=== PATIENT | male | born 1970 | race Caucasian/White ===

== ENCOUNTER 2022-06-22 08:47 | Observation (INO) ==
--- NOTE | 2022-06-22 09:09 | Emergency Department Note ---
Impression & Plan Precordial chest pain, Abnormal stress test ED Provider Note NAME: SOTNEY GARRISON AGE: 51 SEX: M : 1970 ARRIVES VIA: Walk-In INFORMANT: [Patient] ED PROVIDER(S): [Morteza Devine MD] CHIEF COMPLAINT: Chest pain HISTORY OF PRESENT ILLNESS: The patient is a 51-year-old male with no known coronary disease. He does have history of high blood pressure and high cholesterol as well as prediabetes. The patient states that for the last week, he has had episodes of chest discomfort that is almost like a burn. When it happens, he feels a burning and discomfort down both arms. The pain has been a 7/10 at its worst. Sometimes it is 30 seconds long, sometimes it last for minutes. The patient felt better today when he sat down. 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 He does feel a bit short of breath with the discomfort, no sweating or nausea. The patient currently has no discomfort. He did speak with his doctors office today about his recent difficulty, he was referred to the ER. REVIEW OF SYSTEMS: See HPI for pertinent positives and negatives. A total of ten systems were reviewed and were otherwise negative. PMHx/PSHx: See Below SOCIAL HISTORY: See Below. PHYSICAL EXAM: GENERAL: Patient is in no acute distress. HEENT: No acute trauma, normocephalic atraumatic, mucous membranes moist, no nasal congestion, no scleral icterus. NECK: No stridor, no adenopathy, no meningismus, trachea is midline. LUNGS: Clear to auscultation bilaterally, no wheeze, no rhonchi, breath sounds equal. HEART: Without murmurs gallops or rubs, regular rate and rhythm. Chest: Nontender chest wall. ABDOMEN: Soft, nontender, bowel sounds positive, no peritonitis. EXTREMITIES: No cyanosis or edema, full range of motion of all the joints without pain or difficulty, no signs for acute trauma. NEUROLOGIC: Oriented x 3, no acute motor or sensory deficits, no focal weakness. SKIN: No rash, no jaundice, no diaphoresis. DIFFERENTIAL DIAGNOSIS: Cardiac ischemia, aortic dissection, pulmonary embolism, pneumothorax, pneumonia, pericarditis, myocarditis, esophageal rupture, GERD, cholecystitis, pancreatitis, musculoskeletal, as well as other pathologies. EMERGENCY DEPARTMENT COURSE/PROCEDURES: ECG: Indication was chest pain. The ECG shows a normal sinus rhythm with a rate of 71. There is no ST elevation, no PVCs. The QTc is 425. Continuous Cardiac Monitoring: An order was placed for continuous cardiac monitoring. The monitor shows a rate of 74 with normal sinus rhythm. MEDICAL DECISION MAKING: There is no leukocytosis or concerning anemia. There is a normal platelet count. No coagulopathy. ECG shows a normal sinus rhythm, no ischemia or dysrhythmia. Cardiac enzyme testing x2 is not consistent with acute cardiac injury. There is no renal failure or significant electrolyte abnormality. No concerning liver enzyme elevation. No pancreatitis. Patient appeared to be in a euthyroid state. COVID test returned negative. Chest x-ray did not show pneumonia or CHF. Patient presents with some chest pain which did radiate to his arms. He does have cardiac risk factors. I did speak with cardiology. The patient went for a stress test and failed. He is now under the care of of cardiology, he is likely to undergo a cardiac catheterization. The patient is aware of his findings, case management has been involved. His cardiac work-up is underway. 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 Beliefs That Will Affect Care: None Current Living Situation: Spouse and Family Feels Safe at Home: Yes Assistive Devices: Glasses Allergies Allergies Allergy/AdvReac Type Severity Reaction Status Date / Time No Known Allergies Allergy Verified 09/08/18 07:10 Home Meds Home Medications Medication Instructions Recorded Confirmed Atorvastatin 1 tab PO HS 08/18/18 09/08/18 Lisinopril 1 tab PO HS 08/18/18 09/08/18 nortriptyline 10 mg capsule 10 mg PO HS 08/18/18 09/08/18 Previous Rx's Medication Instructions Recorded acetaminophen 500 mg tablet 500 - 1,000 mg PO Q8H PRN pain #30 09/08/18 (Tylenol Extra Strength) tabs ibuprofen 200 mg tablet (Advil) 600 mg PO QID PRN fever or pain 09/08/18 #30 tabs Results & Data (ED) Vital Signs Vital Signs - 24 hr 06/22/22 08:51 06/22/22 09:27 06/22/22 09:27 Temperature 36.8 C Temperature Source Temporal Artery Scan Pulse Rate 74 Pulse Rate [Apical] Pulse Rate from SpO2 Sensor Pulse Rhythm Pulse Rhythm [Apical] Respiratory Rate 18 Respiratory Effort / Characteristics Non-Labored Spontaneous Respiratory Depth Normal Blood Pressure 156/102 H Blood Pressure [Right Arm] Blood Pressure Mean 120 Blood Pressure Mean [Right Arm] Blood Pressure Position [Right Arm] Pulse Oximetry 100 100 Oxygen Delivery Method Room Air Room Air Room Air Sepsis Recent Fever Within 48 Hours No Sepsis New/Unexplained Change in Mental Status No Sepsis Action Taken by Nursing No Action Required 06/22/22 09:27 06/22/22 09:17 06/22/22 09:21 Temperature Temperature Source Pulse Rate 74 70 66 Pulse Rate [Apical] Pulse Rate from SpO2 Sensor 69 67 Pulse Rhythm Regular Pulse Rhythm [Apical] Respiratory Rate 18 20 22 Respiratory Effort / Characteristics Respiratory Depth Blood Pressure Blood Pressure [Right Arm] Blood Pressure Mean Blood Pressure Mean [Right Arm] Blood Pressure Position [Right Arm] Pulse Oximetry 100 97 97 Oxygen Delivery Method Room Air Sepsis Recent Fever Within 48 Hours Sepsis New/Unexplained Change in Mental Status Sepsis Action Taken by Nursing 06/22/22 09:21 06/22/22 09:30 06/22/22 09:30 Temperature Temperature Source Pulse Rate 63 Pulse Rate [Apical] Pulse Rate from SpO2 Sensor 64 Pulse Rhythm Pulse Rhythm [Apical] Respiratory Rate 23 Respiratory Effort / Characteristics Respiratory Depth Blood Pressure 148/93 H 155/96 H Blood Pressure [Right Arm] Blood Pressure Mean 111 115 Blood Pressure Mean [Right Arm] Blood Pressure Position [Right Arm] Pulse Oximetry 97 Oxygen Delivery Method Sepsis Recent Fever Within 48 Hours Sepsis New/Unexplained Change in Mental Status Sepsis Action Taken by Nursing 06/22/22 10:00 06/22/22 10:00 06/22/22 10:29 Temperature Temperature Source Pulse Rate 66 66 Pulse Rate [Apical] Pulse Rate from SpO2 Sensor 67 66 Pulse Rhythm Pulse Rhythm [Apical] Respiratory Rate 20 21 Respiratory Effort / Characteristics Respiratory Depth Blood Pressure 146/93 H Blood Pressure [Right Arm] Blood Pressure Mean 110 Blood Pressure Mean [Right Arm] Blood Pressure Position [Right Arm] Pulse Oximetry 97 99 Oxygen Delivery Method Sepsis Recent Fever Within 48 Hours Sepsis New/Unexplained Change in Mental Status Sepsis Action Taken by Nursing 06/22/22 10:30 06/22/22 11:00 06/22/22 13:09 Temperature 36.9 C Temperature Source Oral Pulse Rate 66 66 Pulse Rate [Apical] Pulse Rate from SpO2 Sensor 66 Pulse Rhythm Pulse Rhythm [Apical] Respiratory Rate 21 21 Respiratory Effort / Characteristics Respiratory Depth Blood Pressure 125/97 121/97 125/97 Blood Pressure [Right Arm] Blood Pressure Mean 106 105 Blood Pressure Mean [Right Arm] Blood Pressure Position [Right Arm] Pulse Oximetry 99 99 Oxygen Delivery Method Room Air Sepsis Recent Fever Within 48 Hours Sepsis New/Unexplained Change in Mental Status Sepsis Action Taken by Nursing 06/22/22 11:30 06/22/22 13:28 06/22/22 15:19 Temperature Temperature Source Pulse Rate 66 Pulse Rate [Apical] 88 87 Pulse Rate from SpO2 Sensor 66 Pulse Rhythm Pulse Rhythm [Apical] Regular Respiratory Rate 21 17 20 Respiratory Effort / Characteristics Non-Labored Spontaneous Respiratory Depth Normal Blood Pressure 125/97 Blood Pressure [Right Arm] 168/108 H 174/130 H Blood Pressure Mean 106 Blood Pressure Mean [Right Arm] 128 144 Blood Pressure Position [Right Arm] Sitting Pulse Oximetry 99 98 99 Oxygen Delivery Method Room Air Room Air Sepsis Recent Fever Within 48 Hours Sepsis New/Unexplained Change in Mental Status Sepsis Action Taken by Nursing 06/22/22 15:30 06/22/22 15:45 Temperature Temperature Source Pulse Rate Pulse Rate [Apical] 74 72 Pulse Rate from SpO2 Sensor Pulse Rhythm Pulse Rhythm [Apical] Regular Regular Respiratory Rate 20 20 Respiratory Effort / Characteristics Non-Labored Spontaneous Non-Labored Spontaneous Respiratory Depth Normal Normal Blood Pressure Blood Pressure [Right Arm] 158/88 H 143/96 H Blood Pressure Mean Blood Pressure Mean [Right Arm] 111 111 Blood Pressure Position [Right Arm] Sitting Sitting Pulse Oximetry 99 99 Oxygen Delivery Method Room Air Room Air Sepsis Recent Fever Within 48 Hours Sepsis New/Unexplained Change in Mental Status Sepsis Action Taken by Custodial Medications Current Medication List: was personally reviewed by me Laboratory Data Attestation: I reviewed the patient's lab results. Result diagrams: 06/22/22 09:22 06/22/22 09:22 Lab Results 06/22/22 06/22/22 06/22/22 Range/Units 09:22 09:22 09:22 WBC 6.98 (4.8-10.8) K/ul RBC 4.83 (4.63-6.08) M/uL Hgb 14.2 (14.0-18.0) g/dl Hct 42.3 (40.1-51.0) % MCV 87.6 (80.0-100.0) fL MCH 29.4 (25.0-34.0) pg MCHC 33.6 (32.0-36.0) g/dL RDW Std Deviation 43.8 (36.4-46.3) fL RDW Coeff of Enrique 13.7 (11.5-14.5) % Plt Count 207 (130-400) K/uL MPV 12.0 (9.4-12.4) fL Immature Gran % (Auto) 0.3 % Neut % (Auto) 62.3 % Lymph % (Auto) 24.6 % Forrest % (Auto) 8.9 % Eos % (Auto) 3.3 % Baso % (Auto) 0.6 % Neut # (Auto) 4.35 (1.4-6.5) K/uL Lymph # (Auto) 1.72 (1.2-3.4) K/uL Forrest # (Auto) 0.62 (0.24-0.82) K/uL Eos # (Auto) 0.23 (0-0.50) K/uL Baso # (Auto) 0.04 (0-0.2) K/uL Immature Gran # (Auto) 0.02 (0.00-0.02) K/uL PT 10.1 (9.0-12.0) Seconds INR 0.9 (0.9-1.1) APTT 27.7 (21.0-31.0) Seconds PTT Ratio 1.0 Activ Coag Time Kaolin (94-140) SECONDS Sodium 140 (136-145) mmol/L Potassium 3.9 (3.5-5.1) mmol/L Chloride 108 H (98-107) mmol/L Carbon Dioxide 26 (21-32) mmol/L Anion Gap 6 (3-11) BUN 24 H (6-23) mg/dl Creatinine 1.17 (0.6-1.4) mg/dl Est Cr Clr Drug Dosing 105.2 ml/min Est GFR ( Amer) 83.2 ml/min Est GFR (Non-Af Amer) 71.8 ml/min BUN/Creatinine Ratio 20.5 H (10-20) Glucose 111 H (70-99(Fasting)) mg/dl Calcium 9.1 (8.5-10.1) mg/dl Magnesium 1.8 (1.7-2.4) mg/dl Total Bilirubin 0.6 (0.2-1.0) mg/dl AST 15 (13-39) U/L ALT 18 (7-52) U/L Alkaline Phosphatase 49 (34-104) U/L Troponin I High Sens 12.4 (0-20) pg/ml Total Protein 6.9 (6.0-8.3) gm/dl Albumin 4.1 (3.4-5.0) gm/dl Globulin 2.8 (2.5-4.0) gm/dl Albumin/Globulin Ratio 1.5 (0.9-2) Lipase 39 (11-82) U/L TSH (0.300-4.500) uIu/ml SARS-CoV-2, RNA, NAAT (NEGATIVE) 06/22/22 06/22/22 06/22/22 Range/Units 09:22 09:46 11:25 WBC (4.8-10.8) K/ul RBC (4.63-6.08) M/uL Hgb (14.0-18.0) g/dl Hct (40.1-51.0) % MCV (80.0-100.0) fL MCH (25.0-34.0) pg MCHC (32.0-36.0) g/dL RDW Std Deviation (36.4-46.3) fL RDW Coeff of Enrique (11.5-14.5) % Plt Count (130-400) K/uL MPV (9.4-12.4) fL Immature Gran % (Auto) % Neut % (Auto) % Lymph % (Auto) % Forrest % (Auto) % Eos % (Auto) % Baso % (Auto) % Neut # (Auto) (1.4-6.5) K/uL Lymph # (Auto) (1.2-3.4) K/uL Forrest # (Auto) (0.24-0.82) K/uL Eos # (Auto) (0-0.50) K/uL Baso # (Auto) (0-0.2) K/uL Immature Gran # (Auto) (0.00-0.02) K/uL PT (9.0-12.0) Seconds INR (0.9-1.1) APTT (21.0-31.0) Seconds PTT Ratio Activ Coag Time Kaolin (94-140) SECONDS Sodium (136-145) mmol/L Potassium (3.5-5.1) mmol/L Chloride (98-107) mmol/L Carbon Dioxide (21-32) mmol/L Anion Gap (3-11) BUN (6-23) mg/dl Creatinine (0.6-1.4) mg/dl Est Cr Clr Drug Dosing ml/min Est GFR ( Amer) ml/min Est GFR (Non-Af Amer) ml/min BUN/Creatinine Ratio (10-20) Glucose (70-99(Fasting)) mg/dl Calcium (8.5-10.1) mg/dl Magnesium (1.7-2.4) mg/dl Total Bilirubin (0.2-1.0) mg/dl AST (13-39) U/L ALT (7-52) U/L Alkaline Phosphatase (34-104) U/L Troponin I High Sens 15.1 (0-20) pg/ml Total Protein (6.0-8.3) gm/dl Albumin (3.4-5.0) gm/dl Globulin (2.5-4.0) gm/dl Albumin/Globulin Ratio (0.9-2) Lipase (11-82) U/L TSH 3.065 (0.300-4.500) uIu/ml SARS-CoV-2, RNA, NAAT NEGATIVE (NEGATIVE) 06/22/22 06/22/22 Range/Units 14:38 14:56 WBC (4.8-10.8) K/ul RBC (4.63-6.08) M/uL Hgb (14.0-18.0) g/dl Hct (40.1-51.0) % MCV (80.0-100.0) fL MCH (25.0-34.0) pg MCHC (32.0-36.0) g/dL RDW Std Deviation (36.4-46.3) fL RDW Coeff of Enrique (11.5-14.5) % Plt Count (130-400) K/uL MPV (9.4-12.4) fL Immature Gran % (Auto) % Neut % (Auto) % Lymph % (Auto) % Forrest % (Auto) % Eos % (Auto) % Baso % (Auto) % Neut # (Auto) (1.4-6.5) K/uL Lymph # (Auto) (1.2-3.4) K/uL Forrest # (Auto) (0.24-0.82) K/uL Eos # (Auto) (0-0.50) K/uL Baso # (Auto) (0-0.2) K/uL Immature Gran # (Auto) (0.00-0.02) K/uL PT (9.0-12.0) Seconds INR (0.9-1.1) APTT (21.0-31.0) Seconds PTT Ratio Activ Coag Time Kaolin 237 H 254 H (94-140) SECONDS Sodium (136-145) mmol/L Potassium (3.5-5.1) mmol/L Chloride (98-107) mmol/L Carbon Dioxide (21-32) mmol/L Anion Gap (3-11) BUN (6-23) mg/dl Creatinine (0.6-1.4) mg/dl Est Cr Clr Drug Dosing ml/min Est GFR ( Amer) ml/min Est GFR (Non-Af Amer) ml/min BUN/Creatinine Ratio (10-20) Glucose (70-99(Fasting)) mg/dl Calcium (8.5-10.1) mg/dl Magnesium (1.7-2.4) mg/dl Total Bilirubin (0.2-1.0) mg/dl AST (13-39) U/L ALT (7-52) U/L Alkaline Phosphatase (34-104) U/L Troponin I High Sens (0-20) pg/ml Total Protein (6.0-8.3) gm/dl Albumin (3.4-5.0) gm/dl Globulin (2.5-4.0) gm/dl Albumin/Globulin Ratio (0.9-2) Lipase (11-82) U/L TSH (0.300-4.500) uIu/ml SARS-CoV-2, RNA, NAAT (NEGATIVE) Administered Medications Discontinued Medications Aspirin (Aspirin 81 Mg Chew) Confirm Administered Dose 324 mg .ROUTE .STK-MED ONE Stop: 06/22/22 13:35 Last Admin: 06/22/22 15:24 Dose: 324 mg Documented By: STONE Clopidogrel Bisulfate (Clopidogrel Bisulfate 300 Mg Tab) Confirm Administered Dose 600 mg .ROUTE .STK-MED ONE Stop: 06/22/22 15:15 Last Admin: 06/22/22 15:24 Dose: 600 mg Documented By: STONE Fentanyl Citrate (Fentanyl Citrate 100 Mcg/2 Ml Vial) Confirm Administered Dose 100 mcg .ROUTE .STK-MED ONE Stop: 06/22/22 13:34 Last Admin: 06/22/22 15:26 Dose: 100 mcg Documented By: STONE Fentanyl Citrate (Fentanyl Citrate 100 Mcg/2 Ml Vial) Confirm Administered Dose 100 mcg .ROUTE .STK-MED ONE Stop: 06/22/22 14:25 Last Admin: 06/22/22 15:27 Dose: 50 mcg Documented By: STONE Heparin Sodium (Porcine) (Heparin (Porcine) 1000 Unit/Ml 10 Ml (Timber Harvester Operator Use Only)) Confirm Administered Dose 10,000 units .ROUTE .STK-MED ONE Stop: 06/22/22 13:33 Last Admin: 06/22/22 15:27 Dose: 8,000 units Documented By: STONE Heparin Sodium (Porcine) (Heparin (Porcine) 1000 Unit/Ml 10 Ml (Timber Harvester Operator Use Only)) Confirm Administered Dose 10,000 units .ROUTE .STK-MED ONE Stop: 06/22/22 14:43 Last Admin: 06/22/22 15:27 Dose: Not Given Documented By: STONE Heparin Sodium/Sodium Chloride (Heparin In Nss Infusion 1000 Unit/500 Ml (2 U/Ml) Bag) Confirm Administered Dose 3,000 units IV .STK-MED ONE Stop: 06/22/22 13:34 Last Admin: 06/22/22 15:25 Dose: 3,000 units Documented By: TIMA Midazolam HCl (Midazolam Hcl 1 Mg/Ml 2ml Vial) Confirm Administered Dose 2 mg .ROUTE .STK-MED ONE Stop: 06/22/22 13:33 Last Admin: 06/22/22 15:26 Dose: 2 mg Documented By: STONE Midazolam HCl (Midazolam Hcl 1 Mg/Ml 2ml Vial) Confirm Administered Dose 2 mg .ROUTE .STK-MED ONE Stop: 06/22/22 13:58 Last Admin: 06/22/22 15:27 Dose: 2 mg Documented By: STONE Midazolam HCl (Midazolam Hcl 1 Mg/Ml 2ml Vial) Confirm Administered Dose 2 mg .ROUTE .STK-MED ONE Stop: 06/22/22 14:25 Last Admin: 06/22/22 15:27 Dose: 1 mg Documented By: STONE Nicardipine HCl (Nicardipine Hcl Inj 2.5 Mg/Ml 10 Ml Amp) Confirm Administered Dose 25 mg .ROUTE .STK-MED ONE Stop: 06/22/22 13:33 Last Admin: 06/22/22 15:25 Dose: 25 mg Documented By: TIMA Nitroglycerin/Dextrose (Nitroglycerin/D5w 100mcg/Ml 20ml Syr) Confirm Administer ed Dose 2,000 mcg .ROUTE .STK-MED ONE Stop: 06/22/22 13:34 Last Admin: 06/22/22 15:27 Dose: 2,000 mcg Documented By: TIMA Imaging Data Radiologist's Impression: Chest X-Ray 06/22/22 08:58 XR chest 1V portable CLINICAL HISTORY: Chest Pain TECHNIQUE: Single frontal radiograph of the chest was obtained. Comparison: Comparison is made to chest radiograph 04/18/2022 FINDINGS: No lines and tubes are seen. The cardiomediastinal silhouette is normal. The lungs are clear. Redemonstration of mild elevation of the right hemidiaphragm. No evidence of pleural effusion or pneumothorax. IMPRESSION: No acute chest disease. ACT 112: Negative or not required by law. Electronically signed by: Apolinar Mccarty M.D. 06/22/2022 9:54 AM Discharge Plan Visit Data Chief Complaint: Chest Pain Stated Complaint: REF BY DOC, CHEST PAIN ED Provider: Feese,Morteza J Discharge Problem: Precordial chest pain, Abnormal stress test Patient Disposition: Admitted As Inpatient Condition: Good Discharge Instructions Interventions: ED Discharge Assessment Last Done: 06/22/22 13:09
[2022-06-22 09:43] LABS: Basophils # (auto) 0.04 K/uL (0-0.2); Basophils % (auto) 0.6 %; Eosinophils # (auto) 0.23 K/uL (0-0.50); Eosinophils % (auto) 3.3 %; Hematocrit (blood only) 42.3 % (40.1-51.0); Hemoglobin 14.2 g/dl (14.0-18.0); Immature Granulocytes # (auto) 0.02 K/uL (0.00-0.02); Immature Granulocytes % (auto) 0.3 %; Lymphocytes # (auto) 1.72 K/uL (1.2-3.4); Lymphocytes % (auto) 24.6 %; Mean Corpuscular Hemoglobin 29.4 pg (25.0-34.0); Mean Corpuscular Hgb Conc 33.6 g/dL (32.0-36.0); Mean Corpuscular Volume 87.6 fL (80.0-100.0); Monocytes # (auto) 0.62 K/uL (0.24-0.82); Monocytes % (auto) 8.9 %; Neutrophils # (auto) 4.35 K/uL (1.4-6.5); Neutrophils % (auto) 62.3 %; Platelet Count 207 K/uL (130-400); RDW Coefficient of Variation 13.7 % (11.5-14.5); RDW Standard Deviation 43.8 fL (36.4-46.3); Red Blood Count 4.83 M/uL (4.63-6.08); White Blood Count 6.98 K/ul (4.8-10.8)
--- NOTE | 2022-06-22 09:55 | XRay Report ---
XR chest 1V portable CLINICAL HISTORY: Chest Pain TECHNIQUE: Single frontal radiograph of the chest was obtained. Comparison: Comparison is made to chest radiograph 04/18/2022 FINDINGS: No lines and tubes are seen. The cardiomediastinal silhouette is normal. The lungs are clear. Redemon stration of mild elevation of the right hemidiaphragm. No evidence of pleural effusion or pneumothora x. IMPRESSION: No acute chest disease. ACT 112: Negative or not required by law. Electronically signed by: Apolinar Mccarty M.D. 06/22/2022 9:54 AM
[2022-06-22 10:04] LABS: INR 0.9 (0.9-1.1); Partial Thromboplastin Time 27.7 Seconds (21.0-31.0); Prothrombin Time 10.1 Seconds (9.0-12.0)
[2022-06-22 10:12] LABS: Troponin I High Sensitivity 12.4 pg/ml (0-20)
[2022-06-22 10:15] LABS: Albumin Globulin Ratio 1.5 (0.9-2); Albumin Level 4.1 gm/dl (3.4-5.0); BUN Creatinine Ratio 20.5 (10-20); Bilirubin,Total 0.6 mg/dl (0.2-1.0); Calcium 9.1 mg/dl (8.5-10.1); Creatinine Clr Calc Pharmacy 105.2 ml/min; Est GFR (African American) 83.2 ml/min; Est GFR (Non-African American) 71.8 ml/min; Globulin 2.8 gm/dl (2.5-4.0); Magnesium 1.8 mg/dl (1.7-2.4); Potassium 3.9 mmol/L (3.5-5.1); Total Protein 6.9 gm/dl (6.0-8.3)
--- NOTE | 2022-06-22 13:14 | Pre Anesthesia Assessment ---
Date of Service June 22, 2022 Pre Sedation Assessment Vital Signs Temp Pulse Resp BP Pulse Ox O2 Del Method 06/22/22 11:30 66 21 125/97 99 06/22/22 11:00 66 21 121/97 99 06/22/22 10:30 125/97 06/22/22 10:29 66 21 99 06/22/22 10:00 66 20 97 06/22/22 10:00 146/93 H 06/22/22 09:30 63 23 97 06/22/22 09:30 155/96 H 06/22/22 09:21 148/93 H 06/22/22 09:21 66 22 97 06/22/22 09:17 70 20 97 06/22/22 09:27 74 18 100 Room Air 06/22/22 09:27 100 Room Air 06/22/22 09:27 Room Air 06/22/22 08:51 36.8 C 74 18 156/102 H 100 Room Air Cardiovascular RRR, no murmur, no edema Respiratory normal respiratory effort, lungs clear to auscultation Pre-Sedation Airway Assessment Smoking Status: Never smoker Mallampati Class: III ASA: ASA3 NPO Status Date of Last Intake of Fluids: 06/22/22 Time of Last Intake of Fluids: 07:00 Date of Last Intake of Solid Food: 06/21/22 Time of Last Intake of Solid Foods: 19:00 Procedure Planning Contraindications for Sedation: none Current Medications Reviewed: Yes Notes The planned sedation has been discussed with the patient. Informed Consent was obtained. I have identified the patient, determined the appropriateness of sedation and have assessed the patient immediately prior to the procedure. All medicine(s) and interventions are by my order.
--- NOTE | 2022-06-22 13:21 | Cardiology Consultation ---
Date of Consultation June 22, 2022 Assessment & Plan (1) Exertional angina: (2) Abnormal stress echo: (3) HTN (hypertension): (4) Hyperlipidemia: Plan ASSESSMENT/PLAN: 1. Angina/abnormal stress echo: Symptoms concerning for angina and stress echo suggests LAD territory ischemia. Recommend cardiac catheterization. Risk and benefits of the procedure were discussed with him in detail. He was made aware that CT surgery is not available at this facility. Recommend aspirin 325 mg prior to the procedure. 2. Hypertension: Blood pressure has been consistently mildly elevated, especially from a diastolic standpoint. He takes lisinopril at home but his other medications are not known at this time. Nursing staff plans on calling his PCP office to obtain an accurate list. Further adjustments may be necessary. 3. Dyslipidemia: Most recent lipid values are not known. High intensity statin therapy would be warranted if he is found to have CAD. 4. Disposition: Dr. Devine of the emergency department was updated regarding stress echo findings. He placed cardiology consultation. Findings discussed with patient at the bedside. Offered to call his but he opted to do so himself. She plans on presenting to the hospital. We will proceed with cardiac catheterization. Highly complex medical issues. Thank you for allowing me to participate in the care of your patient. Please call for any other questions or concerns. Sincerely, Yazan Sanchez M.D. History of Present Illness Reason for Consultation: Chest pain; abnormal stress echo Requesting Physician: Dr. Devine Attending Physician: Dr. Devine History of Present Illness Mr. Braxton is a very pleasant 51-year-old gentleman with a history significant for hypertension, prediabetes, dyslipidemia and anxiety. He presented to the emergency department on 06/22/2022 with chest discomfort. For the past 7-10 days, he has been experiencing exertional chest discomfort that would resolve quickly with rest. He described substernal pain as a burning or pressure sensation that would radiate to bilateral arms. There was associated shortness of breath but no diaphoresis. Symptoms would resolve within 10 seconds to 3 or 4 minutes with rest. He would experience chest discomfort with even light exertion. He denies ever having stress testing or cardiac catheterization in the past. His last episode was this morning, prior to coming to the emergency department. Troponin was within normal limits and ECG was unremarkable. He underwent exercise stress echo. Exercise was terminated due to chest discomfort. Stress echo imaging demonstrated large LAD territory ischemia. Chest pain lingered in recovery and resolved after nitroglycerin 0.4 mg sublingual x2. He has since continued to be free from chest pain. He denies melena, hematochezia, hematuria, or other bleeding. He denies syncope, near syncope, palpitations, edema, or recent fever. He takes 5 medications at home but could only recall lisinopril and nortriptyline. Review of systems: As above. Review of systems otherwise negative/unremarkable. Family history: Mother had UT at age of 46. Social history: He denies smoking. No drug abuse. Occasional alcohol. He is and lives at home with his and teenage daughter. 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 He was unaccompanied during evaluation in the stress lab. Allergies Allergy/AdvReac Type Severity Reaction Status Date / Time No Known Allergies Allergy Verified 09/08/18 07:10 Home Medications Medication Instructions Recorded Confirmed Type Atorvastatin 1 tab PO HS 08/18/18 09/08/18 History Lisinopril 1 tab PO HS 08/18/18 09/08/18 History nortriptyline 10 mg capsule 10 mg PO HS 08/18/18 09/08/18 History acetaminophen 500 mg tablet 500 - 1,000 mg PO Q8H PRN pain #30 09/08/18 Rx (Tylenol Extra Strength) tabs ibuprofen 200 mg tablet (Advil) 600 mg PO QID PRN fever or pain 09/08/18 Rx #30 tabs Patient History Medical History (Updated 06/22/22 @ 13:23 by Ortega Sanchez MD) History of varicocele REMOVAL OF Hyperlipidemia Hypertension Osteoarthritis Prediabetes Surgical History History of cystoscopy FOR HEMATURIA History of lumbar fusion L FOOT NERVE PAIN POST OP Hx of elbow surgery RIGHT DEBRIDEMENT Family History Grandfather (Maternal) Family history of diabetes mellitus Social History Smoking Status: Never smoker Second Hand Exposure: No; Hx Alcohol Use: Yes (RARELY) Alcohol type: beer Hx Substance Use: No Preferred Language: Pashto Communication Ability: Effective Stripper Soft Plastic Required: No Beliefs That Will Affect Care: None Current Living Situation: Spouse and Family Feels Safe at Home: Yes Assistive Devices: Glasses Physical Exam Physical Exam: Gen.: No acute distress. Alert and oriented. HEENT: Anicteric sclera. Neck: No JVD. No bruits. Normal carotid upstrokes bilaterally. Cardiac: PMI was nonpalpable. No ventricular heave. Regular. Normal S1-S2. No murmurs, rubs, or gallops. Pulmonary: Clear to auscultation bilaterally without wheezes, rales, or rhonchi. Abdomen: Soft, nontender, nondistended, with normoactive bowel sounds. No bruits noted. Extremities: 2+ radial pulses bilaterally. 2+ posterior tibialis pulses bilaterally. No edema or cyanosis. Psychiatric: Affect appears appropriate. Results & Data ([facility]) Vital Signs (Past 12 Hours) Vital Signs Temp Pulse Resp BP Pulse Ox O2 Del Method 06/22/22 11:30 66 21 125/97 99 06/22/22 13:09 36.9 C 66 21 125/97 99 Room Air 06/22/22 11:00 66 21 121/97 99 06/22/22 10:30 125/97 06/22/22 10:29 66 21 99 06/22/22 10:00 66 20 97 06/22/22 10:00 146/93 H 06/22/22 09:30 63 23 97 06/22/22 09:30 155/96 H 06/22/22 09:21 148/93 H 06/22/22 09:21 66 22 97 06/22/22 09:17 70 20 97 06/22/22 09:27 74 18 100 Room Air 06/22/22 09:27 100 Room Air 06/22/22 09:27 Room Air 06/22/22 08:51 36.8 C 74 18 156/102 H 100 Room Air Laboratory Results Laboratory Results - last 24 hr 06/22/22 06/22/22 06/22/22 09:22 09:22 09:22 WBC 6.98 RBC 4.83 Hgb 14.2 Hct 42.3 MCV 87.6 MCH 29.4 MCHC 33.6 RDW Std Deviation 43.8 RDW Coeff of Enrique 13.7 Plt Count 207 MPV 12.0 Immature Gran % (Auto) 0.3 Neut % (Auto) 62.3 Lymph % (Auto) 24.6 [place] % (Auto) 8.9 Eos % (Auto) 3.3 Baso % (Auto) 0.6 Neut # (Auto) 4.35 Lymph # (Auto) 1.72 [place] # (Auto) 0.62 Eos # (Auto) 0.23 Baso # (Auto) 0.04 Immature Gran # (Auto) 0.02 PT 10.1 INR 0.9 APTT 27.7 PTT Ratio 1.0 Sodium 140 Potassium 3.9 Chloride 108 H Carbon Dioxide 26 Anion Gap 6 BUN 24 H Creatinine 1.17 Est Cr Clr Drug Dosing 105.2 Est GFR ( Amer) 83.2 Est GFR (Non-Af Amer) 71.8 BUN/Creatinine Ratio 20.5 H Glucose 111 H Calcium 9.1 Magnesium 1.8 Total Bilirubin 0.6 AST 15 ALT 18 Alkaline Phosphatase 49 Troponin I High Sens 12.4 Total Protein 6.9 Albumin 4.1 Globulin 2.8 Albumin/Globulin Ratio 1.5 Lipase 39 TSH SARS-CoV-2, RNA, NAAT 06/22/22 06/22/22 06/22/22 09:22 09:46 11:25 WBC RBC Hgb Hct MCV MCH MCHC RDW Std Deviation RDW Coeff of Enrique Plt Count MPV Immature Gran % (Auto) Neut % (Auto) Lymph % (Auto) [place] % (Auto) Eos % (Auto) Baso % (Auto) Neut # (Auto) Lymph # (Auto) [place] # (Auto) Eos # (Auto) Baso # (Auto) Immature Gran # (Auto) PT INR APTT PTT Ratio Sodium Potassium Chloride Carbon Dioxide Anion Gap BUN Creatinine Est Cr Clr Drug Dosing Est GFR ( Amer) Est GFR (Non-Af Amer) BUN/Creatinine Ratio Glucose Calcium Magnesium Total Bilirubin AST ALT Alkaline Phosphatase Troponin I High Sens 15.1 Total Protein Albumin Globulin Albumin/Globulin Ratio Lipase TSH 3.065 SARS-CoV-2, RNA, NAAT NEGATIVE Diagnostic Findings ECG personally reviewed 06/22/2022: Sinus rhythm 71 bpm. Stress echo reviewed at the bedside: Preliminary review demonstrated normal wall motion at rest with large LAD territory ischemia suggested with post-rest images. Significant PVC burden noted early in recovery. Chest x-ray 06/22/2022: No acute process. PG Care Time/CCT Total # of Minutes Spent Total Time Spent with Patient: Total time spent is greater than 50% in coordination of care (as documented) at patient's floor/unit and/or counseling patient: Coding Level of Care Code 01169 Office/OBS Consult Lvl 5 Diagnoses Exertional angina I20.8 Abnormal stress echo R94.39 HTN (hypertension) I10 Hyperlipidemia E78.5
[2022-06-22] MEDS ORDERED: HEPARIN (PORCINE) 1000 UNIT/ML 10 ML (CATH LAB USE ONLY) ONE ×2 (13:32→14:42)
[2022-06-22] MEDS ORDERED: niCARdipine HCL INJ 2.5 MG/ML 10 ML AMP ONE (13:32)
[2022-06-22] MEDS ORDERED: MIDAZOLAM HCL 1 MG/ML 2ML VIAL ONE ×3 (13:32→14:24)
[2022-06-22] MEDS ORDERED: NITROGLYCERIN/D5W 100MCG/ML 20ML SYR ONE (13:33)
[2022-06-22] MEDS ORDERED: fentaNYL citrate 100 MCG/2 ML VIAL ONE ×2 (13:33→14:24)
[2022-06-22] MEDS ORDERED: ASPIRIN 81 MG CHEW ONE (13:34)
[2022-06-22] MEDS ORDERED: NITROGLYCERIN SL 0.4 MG/TAB TAB SL PRN (14:47)
[2022-06-22] MEDS ORDERED: ACETAMINOPHEN 325 MG TAB PO PRN (14:47)
[2022-06-22] MEDS ORDERED: ONDANSETRON INJ 2 MG/ML 2 ML VIAL IV PRN (14:47)
--- NOTE | 2022-06-22 15:12 | Cardiac Catheterization ---
[facility] Data: Sap Bw Architect Cardiac Status Clinical evaluation leading to the procedure CAD Presenation: Positive Stress Test and Unstable angina Anginal Classification: CCS III Heart Failure: No Cardiogenic Shock within 24 Hours: No Cardiac Arrest within 24 Hours: No Imaging Studies Past 6 Months: Yes Stress Studies Past 6 Months: Yes Standard Exercise Test: Yes - Positive Stress Echocardiogram: Yes - Positive and Risk/Extent of Ischemia (High) Coronary Anatomy Dominant: Right Diagnostic Physicians Name: Ortega Sanchez MD Status: Elective Closure Device Percutaneous Entry Location: Radial Closure Device: Radial Band Recommendations: PCI without planned CABG Cardiac Cath Procedure Full Procedure Date June 22, 2022 Pre-Procedure Diagnosis Pre-Procedure Diagnosis: Angina and Positive Stress Test AUC Score AUC Score: 8 Post-Procedure Diagnosis Post-Procedure Diagnosis: Severe CAD and Normal Intracardiac Pressures Procedure(s) Performed Procedure(s) Performed: Coronary Angiography and Left Heart Cath [employer] Teacher Ortega Sanchez MD Whiting Machine Operator(s) Ernestina Estimated Blood Loss Estimated Blood Loss: < 20 ml Medication(s) Medication(s): Fentanyl, Heparin, Lidocaine 1%, Nicardipine and Versed Summary of Findings Procedures: 1. Coronary angiography 2. Left heart catheterization 3. Moderate sedation Indication: 51-year-old gentleman with a history significant for hypertension, dyslipidemia, family history of premature CAD, and prediabetes who presented to the emergency department with exertional chest discomfort. He underwent stress echo which suggested LAD territory ischemia, high risk stress echo. Cardiac catheterization was recommended. Coronary angiography: 1. Left main: Distal left main 10 to 20%. 2. Left anterior descending: Proximal LAD long segment 70 to 80%. Diffuse mild CAD throughout the mid LAD. Mid LAD 20 to 30%. Medium caliber D1 and small caliber D2. RUBY-3 flow. 3. Circumflex: Large caliber vessel. Diffuse proximal circumflex 30 to 40%. Distal circumflex 20%. OM1 and OM 2 without significant CAD. 4. Right coronary artery: Large and dominant vessel. Early mid RCA 30 to 40% followed by 40% stenosis. Late mid RCA 50 to 60%. PDA and PL without significant CAD. RUBY-3 flow. Left heart catheterization: 1. Left ventriculography was not performed. 2. No aortic stenosis. 3. Normal left-sided filling pressure. LVEDP 8 mmHg. Moderate sedation: 1. Sedation start time: 1:54 PM 2. Sedation end time: 2:11 PM Impression: 1. Suspected severe proximal LAD CAD. 2. Otherwise, mild and moderate nonobstructive CAD within the LAD, circumflex and RCA. 3. Normal left-sided filling pressure. 4. No aortic stenosis. Plan: 1. Dr. Love of interventional cardiology was asked to review images and planned IVUS of the proximal LAD. 2. Aggressive risk factor modification. Addendum: IVUS demonstrated severe proximal LAD stenosis. PCI performed. Please see details under separate cover by Dr. Love. Hemodynamics Rest Ao:: 129/86 Final Ao: 140/89 LV: 124/09/06 Recommendations Recommendations: PCI without planned CABG Specimens Specimens: None Radiation Exposure (mGy) 485 mGy. Fluoro time 3.6 min. Contrast (mls) 55 ml Procedural Complication(s) None Disposition remained in syrup machine laborer for interventional cardiology I attest to the content of the Intraoperative Record and any orders documented therein. Any exceptions are noted below. [facility] Card Cath Procedure Codes Cardiac Catheterization Procedure 1: Cardiovascular Cath Procedures: 37685 Coronaries and LHC (+/-LV) Moderate Sedation Procedure 1: Sedation/Anesthesia: 83736 Mod Sedation by the same physician;Init15 Min Child Age 5 & Up Procedure 2: Sedation/Anesthesia: 15675 Mod Sedation by the same physician; Ea [id number] Minutes PG Care Time/CCT Total # of Minutes Spent Total Time Spent with Patient: Total time spent is greater than 50% in coordination of care (as documented) at patient's floor/unit and/or counseling patient:
[2022-06-22] MEDS ORDERED: CLOPIDOGREL BISULFATE 300 MG TAB ONE (15:14)
--- NOTE | 2022-06-22 15:34 | Cardiac Catheterization ---
[facility] Data: Torch Straightener Cardiac Status Clinical evaluation leading to the procedure CAD Presenation: Positive Stress Test Anginal Classification: CCS III Diagnostic Physicians Name: Himanshu Love MD Closure Device Recommendations: PCI without planned CABG Cardiac Cath Procedure Full Procedure Date June 22, 2022 Pre-Procedure Diagnosis Pre-Procedure Diagnosis: Angina and Positive Stress Test AUC Score AUC Score: 8 Post-Procedure Diagnosis Post-Procedure Diagnosis: Severe CAD and Successful PCI Procedure(s) Performed Procedure(s) Performed: Coronary Angiography, Drug Eluting Stent and IVUS Tile Presser Himanshu Love MD Sheet Metal Superintendent(s) Ernestina Estimated Blood Loss Estimated Blood Loss: 20 Medication(s) Medication(s): Clopidogrel, Fentanyl, Heparin, Lidocaine 1%, Nicardipine, Nitroglycerin and Versed Summary of Findings Indication: High risk stress test Access: 6 Fr right radial artery Catheters: EBU 3.5 guide Findings: For full details of patient's coronary angiography please see cath report dictated by Dr. Sanchez. Briefly, patient found to have severe diffuse proximal LAD disease and high risk abnormal stress test with LAD distribution wall motion abnormality. Decision to proceed with PCI. -- PCI -- Antithrombotic therapy: Heparin, clopidogrel Procedure: Left main cannulated with EBU 3.5 guide Pre-procedure flow RUBY 3 BMW wire passed across lesion into distal LAD Prowater wire placed into circumflex [place] IVUS catheter placed into mid LAD. IVUS pullback revealed severe diffuse mildly calcified disease with 80% ostial stenosis MLA 3.1 mm Proximal LAD lesion predilated with 2.5 compliant balloon Dilated lesion stented with 3.5 x 30 mm Kong drug-eluting stent Repeat IVUS showed well apposed stent with no apparent edge complications IVUS of circumflex showed mild to moderate diffuse disease with no ostial compromise Stent post-dilated with 4.0 noncompliant balloon IC vasodilators administered for spasm Post procedure RUBY 3 flow, stent well expanded with minimal residual stenosis and no apparent cardiac complications. Arterial Closure: TR band Summary: 1. Successful PCI of ostial/proximal LAD with single drug-eluting stent (3.5 x 30 mm Kong; postdilated with 4.0 NC). Recommendations: To PCU for continued monitoring Loaded with clopidogrel 600 mg in Torch Straightener Continue dual-antiplatelet therapy for at least 6 months Continue statin, and ASCVD risk factor modification Consult cardiac Rehab Hemodynamics Rest Ao:: 124/84/99 Final Ao: 139/84/113 LV: -- Recommendations Recommendations: PCI without planned CABG Specimens Specimens: None Radiation Exposure (mGy) 1582 Contrast (mls) 130 Anesthesia Moderate 9544-5194 Procedural Complication(s) None Disposition PCU I attest to the content of the Intraoperative Record and any orders documented therein. Any exceptions are noted below. [facility] Card Cath Procedure Codes Therapeutic Services & Ancillary Procedure 1: Cardiovascular Tx and Anc Procedures: 47833 IV Ultrasound (Coronary or Graft) Moderate Sedation Procedure 1: Sedation/Anesthesia: 10208 Mod Sedation by the same physician; Ea [id number] Minutes Stenting Procedure 1: Cardiovascular Stent Procedures: 64010 Perc transcatheter placement of intracoronary stent(s), with ang PG Care Time/CCT Total # of Minutes Spent Total Time Spent with Patient: Total time spent is greater than 50% in coordination of care (as documented) at patient's floor/unit and/or counseling patient:
[2022-06-22] MEDS ORDERED: SODIUM CHLORIDE 0.9% 1000ML 1,000 ML IV SCH (15:45)
[2022-06-22] MEDS ORDERED: FLUARIX QUADRIVALENT 0.5 ML SYR IM ONE (20:00)
[2022-06-22] MEDS ORDERED: NORTRIPTYLINE HCL 25 MG CAP PO SCH (21:00)
[2022-06-22] MEDS ORDERED: ATORVASTATIN 40 MG TAB PO SCH (21:00)
--- NOTE | 2022-06-23 05:26 | Electrocardiogram Report ---
Test Reason : Blood Pressure : / mmHG Vent. Rate : 071 BPM Atrial Rate : 071 BPM P-R Int : 168 ms QRS Dur : 092 ms QT Int : 392 ms P-R-T Axes : -02 061 065 degrees QTc Int : 425 ms Normal sinus rhythm Normal ECG When compared with ECG of 05-SEP-2013 12:48, No significant change was found Confirmed by Ortega Sanchez ([id number]) on 06/23/2022 5:25:53 AM Referred By: REFERRED SELF Confirmed By:Ortega Sanchez
--- NOTE | 2022-06-23 06:09 | Electrocardiogram Report ---
Test Reason : Blood Pressure : / mmHG Vent. Rate : 072 BPM Atrial Rate : 072 BPM P-R Int : 170 ms QRS Dur : 090 ms QT Int : 396 ms P-R-T Axes : -06 052 055 degrees QTc Int : 433 ms Normal sinus rhythm Normal ECG When compared with ECG of 22-JUN-2022 09:01, No significant change was found Confirmed by Ortega Sanchez ([id number]) on 06/23/2022 6:09:11 AM Referred By: REFERRED SELF Confirmed By:Ortega Sanchez
[2022-06-23 06:18] LABS: Hematocrit (blood only) 42.5 % (40.1-51.0); Hemoglobin 14.1 g/dl (14.0-18.0); Mean Corpuscular Hemoglobin 29.3 pg (25.0-34.0); Mean Corpuscular Hgb Conc 33.2 g/dL (32.0-36.0); Mean Corpuscular Volume 88.2 fL (80.0-100.0); Mean Platelet Volume 11.7 fL (9.4-12.4); Platelet Count 225 K/uL (130-400); RDW Coefficient of Variation 13.7 % (11.5-14.5); RDW Standard Deviation 43.8 fL (36.4-46.3); Red Blood Count 4.82 M/uL (4.63-6.08); White Blood Count 9.79 K/ul (4.8-10.8)
[2022-06-23 06:47] LABS: BUN Creatinine Ratio 16.5 (10-20); Creatinine Clr Calc Pharmacy 106.1 ml/min; Est GFR (African American) 84.9 ml/min; Est GFR (Non-African American) 73.3 ml/min; Potassium 3.8 mmol/L (3.5-5.1)
[2022-06-23] MEDS ORDERED: METOPROLOL SUCC 50MG EXT REL TAB PO SCH (09:00)
[2022-06-23] MEDS ORDERED: lisinopril 10 MG TAB PO SCH (09:00)
[2022-06-23] MEDS ORDERED: lisinopril 20 MG TAB PO SCH (09:00)
[2022-06-23] MEDS ORDERED: ASPIRIN 81 MG ECTAB PO SCH (09:00)
[2022-06-23] MEDS ORDERED: hydroCHLOROthiazide 25 MG TAB PO SCH (09:00)
[2022-06-23] MEDS ORDERED: CLOPIDOGREL BISULFATE 75 MG TAB PO SCH (09:00)
--- NOTE | 2022-06-23 09:23 | Discharge Summary ---
Date of Service June 23, 2022 Admission HPI Per Admitting Provider Mr. Braxton is a very pleasant 51-year-old gentleman with a history significant for hypertension, prediabetes, dyslipidemia and anxiety. He presented to the emergency department on 06/22/2022 with chest discomfort. For the past 7-10 days, he has been experiencing exertional chest discomfort that would resolve quickly with rest. He described substernal pain as a burning or pressure sensation that would radiate to bilateral arms. There was associated shortness of breath but no diaphoresis. Symptoms would resolve within 10 seconds to 3 or 4 minutes with rest. He would experience chest discomfort with even light exertion. He denies ever having stress testing or cardiac catheterization in the past. His last episode was this morning, prior to coming to the emergency department. Troponin was within normal limits and ECG was unremarkable. He underwent exercise stress echo. Exercise was terminated due to chest discomfort. Stress echo imaging demonstrated large LAD territory ischemia. Chest pain lingered in recovery and resolved after nitroglycerin 0.4 mg sublingual x2. He has since continued to be free from chest pain. He denies melena, hematochezia, hematuria, or other bleeding. He denies syncope, near syncope, palpitations, edema, or recent fever. He takes 5 medications at home but could only recall lisinopril and nortriptyline. Specialty Data Cardiology Telemetry reviewed on 06/23/22: Sinus rhythm. No arrhythmia. Stress echo 06/22/2022: Abnormal suggesting LAD territory ischemia. High risk stress test. Angina during exercise. Cardiac catheterization 06/22/2022: Coronary angiography: 1. Left main: Distal left main 10 to 20%. 2. Left anterior descending: Proximal LAD long segment 70 to 80%. Diffuse mild CAD throughout the mid LAD. Mid LAD 20 to 30%. Medium caliber D1 and small caliber D2. RUBY-3 flow. 3. Circumflex: Large caliber vessel. Diffuse proximal circumflex 30 to 40%. Distal circumflex 20%. OM1 and OM 2 without significant CAD. 4. Right coronary artery: Large and dominant vessel. Early mid RCA 30 to 40% followed by 40% stenosis. Late mid RCA 50 to 60%. PDA and PL without significant CAD. RUBY-3 flow. Left heart catheterization: 1. Left ventriculography was not performed. 2. No aortic stenosis. 3. Normal left-sided filling pressure. LVEDP 8 mmHg. PCI: 1. Successful PCI of ostial/proximal LAD with single drug-eluting stent (3.5 x 30 mm Kong; postdilated with 4.0 NC). Discharge Data Consultations 06/22/22 13:05 Consult Cardiology Stat 06/22/22 15:36 Consult Cardiac Rehabilitation Routine Procedures Performed Operation Date: 06/22/22 14:00 Actual Procedures p Drug Eluting Stent SGl Vessel - Wayne Love MD p Cath, Left with Cors and Vent - Ortega Sanchez MD s IVUS Coronary Single Vessel - Wayne Love MD s IVUS Coronary each ADDL Vessel - Wayne Love MD s Cineradiography w/Routine Exam - Ortega Sanchez MD Hospital Course (1) CAD (coronary artery disease): (2) S/P coronary artery stent placement: (3) Exertional angina: (4) HTN (hypertension): (5) Hyperlipidemia: (6) Abnormal stress test: Plan ASSESSMENT/PLAN: 1. CAD s/p LAD PCI: Underwent PCI on 06/22/2022 and tolerated the procedure well. No further angina. Tolerated ambulation in the hallway without symptoms. Continue aspirin 81 mg daily indefinitely. Continue Plavix 75 mg daily for at least 6 months. Anti-platelet therapy discussed in detail with patient and . Continue beta-betty, JUAN LUIS-inhibitor, high-intensity statin therapy. Nitroglycerin p.r.n. angina. Call 911 for angina that does not resolve within 5 minutes of nitroglycerin. 2. Hypertension: Blood pressure has been elevated throughout his hospital stay. Metoprolol succinate increased to 50 mg daily. Lisinopril increased to 20 mg daily. Further adjustments can be made as an outpatient. Continue HCTZ. 3. Dyslipidemia: Statin therapy has been adjusted and is currently high- intensity. Continue high-intensity statin therapy on discharge. Mediterranean diet. Regular cardiovascular exercise with a goal of 30-40 minutes per day, 5 days per week once recovered from procedure. 4. Angina/abnormal stress Echo: Symptoms and stress echo prompted cardiac catheterization as above. No further angina following PCI. 5. Disposition: He is asymptomatic and hemodynamically stable. He can follow- up the cardiology office next week. Appointment has been scheduled. Exam on day of discharge: Gen.: No acute distress. Alert and oriented. HEENT: Anicteric sclera. Neck: No JVD. Cardiac: No ventricular heave. Regular. Normal S1-S2. No murmurs, rubs, or gallops. Pulmonary: Clear to auscultation bilaterally without wheezes, rales, or rhonchi. Abdomen: Soft, nontender, nondistended, with normoactive bowel sounds. No bruits noted. Extremities: 2+ radial pulses bilaterally. Right radial cath site is clean, dry, and intact without erythema or discharge. 2+ posterior tibialis pulses bilaterally. No edema or cyanosis. Psychiatric: Affect appears appropriate. Coding Level of Care Code 12564 OBS Care - Discharge Diagnoses CAD (coronary artery disease) I25.10 S/P coronary artery stent placement Z95.5 Exertional angina I20.8 HTN (hypertension) I10 Hyperlipidemia E78.5 Abnormal stress test R94.39
--- NOTE | 2022-06-23 11:08 | XCELERA ---
[id number]
--- NOTE | 2022-06-24 06:47 | Electrocardiogram Report ---
Test Reason : Blood Pressure : / mmHG Vent. Rate : 073 BPM Atrial Rate : 073 BPM P-R Int : 160 ms QRS Dur : 092 ms QT Int : 400 ms P-R-T Axes : -21 067 059 degrees QTc Int : 440 ms Normal sinus rhythm Normal ECG When compared with ECG of 22-JUN-2022 16:07, No significant change was found Confirmed by Ortega Sanchez ([id number]) on 06/24/2022 6:47:22 AM Referred By: REFERRED SELF Confirmed By:Ortega Sanchez
== END 2022-06-23 09:49 | disposition home or self-care (01) ==
LOC: ED 08:47 → 4W 13:00 → CC 13:00 → ED 13:09

== ENCOUNTER 2023-09-29 12:55 | Inpatient (IN) ==
[2023-09-29] MEDS ORDERED: SODIUM CHLORIDE 0.9% 1,000 ML IV ONE (13:07)
[2023-09-29 13:42] LABS: Basophils # (auto) 0.04 K/uL (0.00-0.20); Basophils % (auto) 0.3 %; Eosinophils # (auto) 0.02 K/uL (0.00-0.50); Eosinophils % (auto) 0.1 %; Hematocrit (blood only) 32.3 % (42.0-52.0); Hemoglobin 10.5 g/dl (14.0-18.0); Immature Granulocytes # (auto) 0.17 K/uL (0.01-0.20); Immature Granulocytes % (auto) 1.3 %; Lymphocytes # (auto) 2.28 K/uL (1.20-3.40); Lymphocytes % (auto) 16.9 %; Mean Corpuscular Hemoglobin 27.7 pg (25.0-34.0); Mean Corpuscular Hgb Conc 32.5 g/dL (32.0-36.0); Mean Corpuscular Volume 85.2 fL (80.0-100.0); Mean Platelet Volume 11.2 fL (9.4-12.4); Monocytes # (auto) 0.66 K/uL (0.11-0.59); Monocytes % (auto) 4.9 %; Neutrophils # (auto) 10.35 K/uL (1.40-6.50); Neutrophils % (auto) 76.5 %; Platelet Count 298 K/uL (130-400); RDW Coefficient of Variation 14.2 % (11.5-14.5); RDW Standard Deviation 43.2 fL (36.4-46.3); Red Blood Count 3.79 M/uL (4.70-6.10); White Blood Count 13.52 K/ul (4.8-10.8)
[2023-09-29 14:04] LABS: Partial Thromboplastin Ratio 0.8; Partial Thromboplastin Time 22 Seconds (21-31); Prothrombin Time 10.7 Seconds (9.0-12.0)
[2023-09-29 14:05] LABS: Albumin Globulin Ratio 1.5 (0.9-2); Albumin Level 3.8 gm/dl (3.4-5.0); BUN Creatinine Ratio 47.3 (10-20); Bilirubin,Total 0.4 mg/dl (0.2-1.0); Calcium 8.9 mg/dl (8.6-10.3); Creatinine Clr Calc Pharmacy 80.8 ml/min; Est GFR (African American) 61.7 ml/min; Est GFR (Non-African American) 53.3 ml/min; Globulin 2.6 gm/dl (2.5-4.0); Potassium 3.6 mmol/L (3.5-5.1); Total Protein 6.4 gm/dl (6.0-8.3)
[2023-09-29 14:11] LABS: Troponin I High Sensitivity 4.1 pg/ml (0-20)
--- NOTE | 2023-09-29 14:18 | Emergency Department Note ---
Impression & Plan Upper GI bleed, Syncope, Symptomatic anemia, CKD (chronic kidney disease) ED Provider Note NAME: STONEY GARRISON AGE: 53 SEX: M : 1970 ARRIVES VIA: Walk-In INFORMANT: Patient, ED PROVIDER(S): Gunner Torres MD CHIEF COMPLAINT: Syncope, feeling ill MEDICAL DECISION MAKING: Patient presents due to concern for feeling generally well and associated syncope. The patient did have an IV established and blood work was obtained. Initially tachycardic upon presentation. Patient has a white count of 13. Patient's initial hemoglobin of 10.5 which is down about 2 points from July and about 4 points from December. Patient does have significant prerenal azotemia which may be consistent with upper GI bleeding. Patient was ordered Protonix bolus and drip and the patient was consented-type and screen ordered. 2 large-bore IVs ordered as well. I did speak with on-call dough catcher Dr. Mahajan to make him aware of the patient. I also did speak with inpatient medicine service Dr. Garcia. Patient did have some associated right knee pain but the patient does not have any obvious deformity. The patient did have a plain x-ray completed which was negative. Chest x-ray also negative. Of note patient did syncopized yesterday does not sound as though the patient struck his head the patient does not have any focal neurological deficits no head or neck pain do not believe he requires CT of the head at the time of presentation. Discussion w/ other healthcare providers: Dr. Mahajan gastroenterology Dr. Garcia inpatient medicine service Prior /Outside records reviewed: Reviewed a prior cardiology visit from August 02, 2023 with Anjelica Lanier. Known history of CAD status post stent placement hyperlipidemia and hypertension. Differential diagnosis: Vasovagal event, dehydration, infection, hypoglycemia, electrolyte abnormalities, arrhythmia, pulmonary embolism, seizure among others were considered. Diagnostics, as interpreted by me: ECG: Sinus tachycardia, rate of 126, normal intervals, normal axis no ST elevations. Cardiac monitoring: An order was placed for continuous cardiac monitoring. The monitor shows a rate of 102 with tachycardic and regular rhythm. Patient was placed on pulse oximetry Medical decision rules: None Imaging studies: I informally interpreted the patient's knee x-ray which does not show obvious fracture or dislocation with formal report to follow. I informally interpreted the patient's chest x-ray which does not show obvious pneumonia or pneumothorax with formal report to follow HPI: Patient presents due to concern for syncope and feeling generally unwell. The patient states that last week he did feel unwell but he seemed to improve but then over the weekend he started to feel somewhat ill again with associated lightheadedness and dizziness. The patient has had nonproductive cough. Patient is a non-smoker. Patient does take dual antiplatelet therapy for known history of cardiac stent. He denies any chest pains or shortness of breath no nausea vomiting. Patient has noticed dark stools. The patient states that yesterday that he was trying to sit up from bed and did feel lightheaded x 2. The patient did eventually get up to try to walk to the bathroom to use the bathroom when he passed out. The patient believes that he struck his right knee he does have some pain to the medial aspect of the right knee. Patient states that he did check his blood pressure at that time and was noted to be low 80s over 50s. Patient does not think that he struck his head when he passed out. Patient denies any head or neck pain. No numbness tingling or focal weakness PAST MEDICAL HISTORY: See Below PAST SURGICAL HISTORY: See Below SOCIAL HISTORY: See Below HOME MEDICATIONS: See Below ALLERGIES: See Below VITALS: See Below PHYSICAL EXAMINATION: GENERAL: NAD, non-toxic. EYE EXAM: Normal conjunctiva. PERRL, no anisocoria and EOM's grossly intact w/o pain. OROPHARYNX: Moist mucus membranes, grossly normal dentition. NECK: Trachea midline, no stridor. Supple, no nuchal rigidity, no adenopathy, non-tender. No signs of meningismus. FROM of the neck with good chin to chest and neck extension. LUNGS: Clear to auscultation. Normal chest wall mechanics. HEART: Tachycardic and regular, no MRG. ABDOMEN: Abdomen soft, non-tender, no masses, no rebound or guarding. BACK: No CVA TTP. SKIN: No rashes and no bruising. UPPER EXTREMITIES: Upper extremities are grossly normal. LOWER EXTREMITIES: Grossly normal, no edema. Mild pain to the right medial knee without obvious deformity, neurovascular intact distally. No pain with varus or valgus stress NEURO EXAM: A&O x3, cranial nerves II-XII grossly intact, normal speech, moves all 4 extremities. Past Med/Surg History Medical History Proteinuria Acute kidney injury Renal cyst, left Microscopic hematuria Left lumbar radiculopathy CAD (coronary artery disease) [facility] Prediabetes Osteoarthritis Hyperlipidemia Hypertension Surgical History History of cardiac catheterization 06/22/22 [facility] - 1 stent S/P coronary artery stent placement x 1 History of varicocele REMOVAL OF Hx of elbow surgery RIGHT DEBRIDEMENT History of cystoscopy FOR HEMATURIA History of lumbar fusion L FOOT NERVE PAIN POST OP Family History Grandfather (Maternal) Family history of diabetes mellitus Social History Smoking Status: Never smoker Second Hand Exposure: No; Do You Dip or Chew Tobacco: No; Hx Alcohol Use: Yes Alcohol type: beer Hx Substance Use: No Preferred Language: Slovak Communication Ability: Effective Debubblizer Required: No Beliefs That Will Affect Care: None Current Living Situation: Spouse Feels Safe at Home: Yes Assistive Devices: None Allergies Allergies Allergy/AdvReac Type Severity Reaction Status Date / Time No Known Allergies Allergy Verified 09/29/23 15:07 Home Meds Home Medications Medication Instructions Recorded Confirmed tadalafil 5 mg tablet 5 mg PO DAILY PRN ud 06/22/22 09/29/23 amitriptyline 25 mg tablet 25 mg PO HS 08/17/22 09/29/23 hydroxyzine HCl 10 mg tablet 20 mg PO DAILY 08/27/23 09/29/23 Previous Rx's Medication Instructions Recorded aspirin 81 mg tablet,delayed 81 mg PO QAM #30 tabs 06/23/22 release nitroglycerin 0.4 mg sublingual 0.4 mg sublingual Q5M PRN chest 06/23/22 tablet (Nitrostat) pain #25 tabs hydrochlorothiazide 25 mg tablet 25 mg PO QAM #90 tabs 01/13/23 rosuvastatin 40 mg tablet (Crestor) 40 mg PO HS #90 tabs 01/13/23 clopidogrel 75 mg tablet 75 mg PO QAM #90 tabs 03/19/23 lisinopril 20 mg tablet 20 mg PO QAM #90 tabs 03/19/23 ezetimibe 10 mg tablet (Zetia) 10 mg PO DAILY #90 tabs 08/02/23 metoprolol succinate 50 mg 50 mg PO QAM #90 tabs 08/02/23 tablet,extended release 24 hr Results & Data (ED) Vital Signs Vital Signs - 24 hr 09/29/23 12:59 09/29/23 15:07 09/29/23 15:13 Temperature 36.9 C Temperature Source Temporal Artery Scan Pulse Rate 133 H 104 H 101 H Respiratory Rate 18 Respiratory Effort / Characteristics Non-Labored Spontaneous Respiratory Depth Normal Respiratory Pattern Regular Blood Pressure 111/66 123/77 Blood Pressure Mean 81 92 Blood Pressure Position Sitting Pulse Oximetry 100 97 Oxygen Delivery Method Room Air Room Air Sepsis Recent Fever Within 48 Hours No Sepsis New/Unexplained Change in Mental Status N/A Sepsis Action Taken by Nursing No Action Required 09/29/23 15:30 09/29/23 16:00 09/29/23 16:30 Temperature Temperature Source Pulse Rate 102 H 94 H 101 H Respiratory Rate 22 16 16 Respiratory Effort / Characteristics Respiratory Depth Respiratory Pattern Blood Pressure 128/75 125/81 130/73 Blood Pressure Mean 92 95 92 Blood Pressure Position Pulse Oximetry 97 98 97 Oxygen Delivery Method Room Air Room Air Room Air Sepsis Recent Fever Within 48 Hours Sepsis New/Unexplained Change in Mental Status Sepsis Action Taken by Nursing 09/29/23 16:59 Temperature Temperature Source Pulse Rate 101 H Respiratory Rate 17 Respiratory Effort / Characteristics Respiratory Depth Respiratory Pattern Blood Pressure 128/81 Blood Pressure Mean 96 Blood Pressure Position Pulse Oximetry 98 Oxygen Delivery Method Room Air Sepsis Recent Fever Within 48 Hours Sepsis New/Unexplained Change in Mental Status Sepsis Action Taken by Care Home Medications Current Medication List: was personally reviewed by me Laboratory Data Attestation: I reviewed the patient's lab results. 09/29/23 17:05 09/29/23 13:20 Lab Results 09/29/23 09/29/23 09/29/23 Range/Units 13:20 15:04 17:05 WBC 13.52 H (4.8-10.8) K/ul RBC 3.79 L (4.70-6.10) M/uL Hgb 10.5 L 9.7 L (14.0-18.0) g/dl Hct 32.3 L 29.5 L (42.0-52.0) % MCV 85.2 (80.0-100.0) fL MCH 27.7 (25.0-34.0) pg MCHC 32.5 (32.0-36.0) g/dL RDW Std Deviation 43.2 (36.4-46.3) fL RDW Coeff of Enrique 14.2 (11.5-14.5) % Plt Count 298 (130-400) K/uL MPV 11.2 (9.4-12.4) fL Immature Gran % (Auto) 1.3 % Neut % (Auto) 76.5 % Lymph % (Auto) 16.9 % [place] % (Auto) 4.9 % Eos % (Auto) 0.1 % Baso % (Auto) 0.3 % Neut # (Auto) 10.35 H (1.40-6.50) K/uL Lymph # (Auto) 2.28 (1.20-3.40) K/uL [place] # (Auto) 0.66 H (0.11-0.59) K/uL Eos # (Auto) 0.02 (0.00-0.50) K/uL Baso # (Auto) 0.04 (0.00-0.20) K/uL Immature Gran # (Auto) 0.17 (0.01-0.20) K/uL PT 10.7 (9.0-12.0) Seconds INR 1.0 (0.9-1.1) APTT 22 (21-31) Seconds PTT Ratio 0.8 Sodium 137 (136-145) mmol/L Potassium 3.6 (3.5-5.1) mmol/L Chloride 105 (98-107) mmol/L Carbon Dioxide 24 (21-32) mmol/L Anion Gap 8 (3-11) BUN 70 H (6-23) mg/dl Creatinine 1.48 H (0.6-1.4) mg/dl Est Cr Clr Drug Dosing 80.8 ml/min Est GFR ( Amer) 61.7 ml/min Est GFR (Non-Af Amer) 53.3 ml/min BUN/Creatinine Ratio 47.3 H (10-20) Glucose 196 H (70-99(Fasting)) mg/dl Calcium 8.9 (8.6-10.3) mg/dl Total Bilirubin 0.4 (0.2-1.0) mg/dl AST 14 (13-39) U/L ALT 19 (7-52) U/L Alkaline Phosphatase 38 (34-104) U/L Troponin I High Sens 4.1 (0-20) pg/ml Total Protein 6.4 (6.0-8.3) gm/dl Albumin 3.8 (3.4-5.0) gm/dl Globulin 2.6 (2.5-4.0) gm/dl Albumin/Globulin Ratio 1.5 (0.9-2) Blood Type AB Positive Antibody Screen NEGATIVE Administered Medications Pantoprazole Sodium 40 mg/ (Dextrose) 100 mls @ 20 mls/hr IV Q5H HAILY Stop: 10/29/23 14:59 Last Admin: 09/29/23 15:07 Dose: 8 mg/hr, 20 mls/hr Documented By: AMINA Lactated Ringer's (Lr) 1,000 mls @ 125 mls/hr IV .Q8H HAILY Stop: 10/29/23 16:14 Last Admin: 09/29/23 16:28 Dose: 125 mls/hr Documented By: TESSA Discontinued Medications Sodium Chloride (Nss) 1,000 mls @ 999 mls/hr IV .Q1H1M ONE Stop: 09/29/23 14:07 Last Infusion: 09/29/23 15:07 Dose: Infused Documented By: Admin: 09/29/23 13:24 Dose: 999 mls/hr Documented By: MARCIN Pantoprazole Sodium 80 mg/ (Dextrose) 120 mls @ 480 mls/hr IV NOW ONE Stop: 09/29/23 14:56 Last Infusion: 09/29/23 15:45 Dose: Infused Documented By: Admin: 09/29/23 15:07 Dose: 480 mls/hr Documented By: AMINA Pantoprazole Sodium (Pantoprazole Bolus/Drip) 1 each IV NOW STA Stop: 09/29/23 14:43 Last Admin: 09/29/23 15:07 Dose: 1 each Documented By: AMINA Imaging Data Radiologist's Impression: Chest X-Ray 09/29/23 13:06 SINGLE VIEW CHEST CLINICAL HISTORY: Atypical chest pain. FINDINGS: A PA chest radiograph is compared to study dated 06/22/2022. The cardiomediastinal silhouette is unremarkable. The lungs and pleural spaces are clear. No pneumothorax is seen. The bony thorax is grossly intact. IMPRESSION: No active disease in the chest. ACT 112: Negative or not required by law. Electronically signed by: Morteza London M.D. 09/29/2023 2:23 PM Knee X-Ray 09/29/23 13:07 XR knee RT 3V CLINICAL HISTORY: Knee trauma, no prior imaging TECHNIQUE: 3 views of the right knee were obtained. Comparison: None available at the time of this dictation. FINDINGS: There is no evidence of an acute fracture. Degenerative changes are seen in the knee joint. No joint effusion is seen. Soft tissue swelling is seen about the knee. IMPRESSION: Degenerative changes without evidence of acute injury. ACT 112: Negative or not required by law. Electronically signed by: Apolinar Mccarty M.D. 09/29/2023 2:40 PM Discharge Plan Visit Data Chief Complaint: Syncope (Near Syncope) Stated Complaint: SICK FOR 11 DAYS PASSED OUT LOW BP ED Provider: Gunner Torres Discharge Problem: Upper GI bleed, Syncope, Symptomatic anemia, CKD (chronic kidney disease) Forms Stand Alone Forms: [facility] Prescriptions Prescriptions: No Action clopidogrel 75 mg tablet 75 mg PO QAM Qty: 90 3RF lisinopril 20 mg tablet 20 mg PO QAM Qty: 90 3RF metoprolol succinate 50 mg tablet extended release 24 hr 50 mg PO QAM Qty: 90 3RF ezetimibe [Zetia] 10 mg tablet 10 mg PO DAILY Qty: 90 3RF hydroxyzine HCl 10 mg tablet 20 mg PO DAILY hydrochlorothiazide 25 mg tablet 25 mg PO QAM Qty: 90 3RF rosuvastatin [Crestor] 40 mg tablet 40 mg PO HS Qty: 90 3RF tadalafil 5 mg Tablet 5 mg PO DAILY PRN (Reason: ud) nitroglycerin [Nitrostat] 0.4 mg tablet, sublingual 0.4 mg sublingual Q5M PRN (Reason: chest pain) Qty: 25 2RF Rx Instructions: Take 1 tab sublingual every 5 min as needed for chest pain. Max 3 doses per episode. Call 911 if chest pain persists after 1st dose. aspirin 81 mg Tablet,Delayed Release (Dr/Ec) 81 mg PO QAM Qty: 30 0RF amitriptyline 25 mg Tablet 25 mg PO HS Referrals Referrals: Juice Zepeda MD [Primary Care Provider] - Discharge Problem: Syncope Qualifiers: Syncope type: unspecified Qualified Code(s): R55 - Syncope and collapse CKD (chronic kidney disease) Qualifiers: Chronic kidney disease stage: unspecified stage Qualified Code(s): N18.9 - Chronic kidney disease, unspecified
--- NOTE | 2023-09-29 14:25 | XRay Report ---
SINGLE VIEW CHEST CLINICAL HISTORY: Atypical chest pain. FINDINGS: A PA chest radiograph is compared to study dated 06/22/2022. The cardiomediastinal silhouet te is unremarkable. The lungs and pleural spaces are clear. No pneumothorax is seen. The bony thorax is grossly intact. IMPRESSION: No active disease in the chest. ACT 112: Negative or not required by law. Electronically signed by: Morteza London M.D. 09/29/2023 2:23 PM
[2023-09-29] MEDS ORDERED: PANTOPRAZOLE BOLUS/DRIP IV STA (14:42)
[2023-09-29] MEDS ORDERED: PANTOprazole 80 MG in DEXTROSE 5% 100 ML IV ONE (14:42)
--- NOTE | 2023-09-29 14:42 | XRay Report ---
XR knee RT 3V CLINICAL HISTORY: Knee trauma, no prior imaging TECHNIQUE: 3 views of the right knee were obtained. Comparison: None available at the time of this dictation. FINDINGS: There is no evidence of an acute fracture. Degenerative changes are seen in the knee joint. No joint effusion is seen. Soft tissue swelling is seen about the knee. IMPRESSION: Degenerative changes without evidence of acute injury. ACT 112: Negative or not required by law. Electronically signed by: Apolinar Mccarty M.D. 09/29/2023 2:40 PM
[2023-09-29] MEDS: PANTOprazole 40 MG in DEXTROSE 5% MINI-B 100 ML IV SCH ×2 (15:07→20:24)
--- NOTE | 2023-09-29 15:21 | Electrocardiogram Report ---
Test Reason : Blood Pressure : / mmHG Vent. Rate : 126 BPM Atrial Rate : 126 BPM P-R Int : 152 ms QRS Dur : 082 ms QT Int : 302 ms P-R-T Axes : 050 085 015 degrees QTc Int : 437 ms Sinus tachycardia Otherwise normal ECG When compared with ECG of 23-JUN-2022 06:25, Vent. rate has increased BY 53 BPM Nonspecific T wave abnormality now evident in Inferior leads Confirmed by Thomas Salcedo ([id number]) on 09/29/2023 3:20:45 PM Referred By: Confirmed By:Thomas Salcedo
--- NOTE | 2023-09-29 15:33 | History & Physical Report ---
Date of Service September 29, 2023 Assessment & Plan (1) Upper GI bleed: Plan: Upper GI bleed Acute leukocytosis of 13 without left shift Last hemoglobin baseline 12-7-2013, 10.5 on admission Patient with a syncopal event BUN acutely elevated from normal up to 70 on admission consistent with upper GI bleed. Creatinine is stable more recent baseline H&H trended every 4 hours Patient improved and normotensive with hemoglobin down trended less than 100 following fluids Discussed with GI Dr. Mahajan, plan to scope with EGD tomorrow. If patient continues to drop/symptoms and needs emergent EGD tonight contact Dr. Holbrook who will be on-call overnight. - PPI continued. May switch to IV BID tomorrow, gtt already started in ER and will continue CAD, LAD PCI PCI 05/2022. 1D US to proximal LAD due to abnormal stress test Patient is more than 1 year out and has hemodynamically significant bleeding with an episode of syncope, aspirin/Plavix temporarily held for GIB. Resume plaavix when stable. - No chest pain/chest pressure. Last stress echo normal. - EKG sinus tachy 2/2 GIB CKD Following with [facility], recent creatinine baseline around 1.41.5 - Denies LUTS/dysuria. No flank pain. - Trend daily DVT PPx; SCDs CODE: Full Diet: NPO Dispo: PCU (2) CAD (coronary artery disease): (3) S/P coronary artery stent placement: (4) Hyperlipidemia: (5) HTN (hypertension): (6) CKD (chronic kidney disease): History of Present Illness Primary Care Provider: Juice Zepeda MD Joe is a 53-year-old male with a past medical history of CAD s/p LAD PCI 05/2022, hyperlipidemia, hypertension with last stress echo 09/08/2023 negative for ischemic findings on echo/EKG and with EF 55-60% and normal wall motion who presents to the ER for an episode of syncope with suspected upper GI bleed Fatigue, low BP, 1x syncopal event 1 day prior to presentation, +melena, poor appetite. DAPT for 1 stent >1 year out Beulah reports he and his Smiley had a flu like illness one week ago. Cough was a little persistent but was otherwise getting better up until last night when he stood an dgot a little lightheaded. Was walking and went grocery shopping and did OK, but then in the evening stood up and went to go to the bathroom when he got very lightheaded, felt his knees buckling, and then he passed out. Was a little confused waking up but got his bearings in a few minutes. [place] very weak all over and crawled to bed. No numbness or tingling. Landed on his R knee which aches. No chest pain or chest presure Has been more winded/short of breath with exertion and a little now even when in bed Is on BP meds so checked his BP at home after falling an dwas 88/58. Drank gatorade and improved, but then dropepd again. +Black bowel movements for 2 days. No history of GIB. Had a colonoscopy @ age 50 and was normal per pt. 10 year followup. Was performed in [facility] by Yumiko. For his cold he was taking Nyquil severe cold/flu honey. He is not allowed to take NSAIDs due to 'heart stuff'. Is on daily aspirin/plaavix. He did not take his doses this morning. +hx of GERD/reflux. Had a barium test for dysphagia at one point an was on prilosec in the past but no longer takes. Last BM this morning, jet black/ Medical History: Reviewed Medications: Reviewed Surgical History: Reviewed Family history: Reviewed Allergies: Reviewed Social History: No tobacco, 1 day of ETOH use per week Code Status: Full Allergies Allergy/AdvReac Type Severity Reaction Status Date / Time No Known Allergies Allergy Verified 09/29/23 15:07 Home Medications Medication Instructions Recorded Confirmed Type tadalafil 5 mg tablet 5 mg PO DAILY PRN ud 06/22/22 09/29/23 History aspirin 81 mg tablet,delayed 81 mg PO QAM #30 tabs 06/23/22 09/29/23 Rx release nitroglycerin 0.4 mg sublingual 0.4 mg sublingual Q5M PRN chest 06/23/22 09/29/23 Rx tablet (Nitrostat) pain #25 tabs amitriptyline 25 mg tablet 25 mg PO HS 08/17/22 09/29/23 History hydrochlorothiazide 25 mg tablet 25 mg PO QAM #90 tabs 01/13/23 09/29/23 Rx rosuvastatin 40 mg tablet (Crestor) 40 mg PO HS #90 tabs 01/13/23 09/29/23 Rx clopidogrel 75 mg tablet 75 mg PO QAM #90 tabs 03/19/23 09/29/23 Rx lisinopril 20 mg tablet 20 mg PO QAM #90 tabs 03/19/23 09/29/23 Rx ezetimibe 10 mg tablet (Zetia) 10 mg PO DAILY #90 tabs 08/02/23 09/29/23 Rx metoprolol succinate 50 mg 50 mg PO QAM #90 tabs 08/02/23 09/29/23 Rx tablet,extended release 24 hr hydroxyzine HCl 10 mg tablet 20 mg PO DAILY 08/27/23 09/29/23 History Past Med/Surg History Medical History (Updated 09/29/23 @ 15:59 by Andrae Garcia MD) Proteinuria Acute kidney injury Renal cyst, left Microscopic hematuria Left lumbar radiculopathy CAD (coronary artery disease) [facility] Prediabetes Osteoarthritis Hyperlipidemia Hypertension Surgical History History of cardiac catheterization 06/22/22 [facility] - 1 stent S/P coronary artery stent placement x 1 History of varicocele REMOVAL OF Hx of elbow surgery RIGHT DEBRIDEMENT History of cystoscopy FOR HEMATURIA History of lumbar fusion L FOOT NERVE PAIN POST OP Family History Grandfather (Maternal) Family history of diabetes mellitus Social History Smoking Status: Never smoker Second Hand Exposure: No; Do You Dip or Chew Tobacco: No; Hx Alcohol Use: Yes Alcohol type: beer Hx Substance Use: No Preferred Language: Hungarian Communication Ability: Effective Help Desk Technician Required: No Beliefs That Will Affect Care: None Current Living Situation: Spouse Feels Safe at Home: Yes Assistive Devices: None Physical Exam Physical Exam: General: A&Ox3. NAD. Cooperative. HEENT: Atraumatic, normocephalic. Mild pallor. Vision and hearing intact Pulm: CTAB A&P. -wheezes, -rales, -rhonchi. Symmetrical chest rise. No increased work of breathing. No respiratory distress. Cardiac: regular, slight tachycardia, -mrg. Radial pulses intact and symmetrical. Abdominal: trace epigastric tenderness, otherwise NT/nondistended, soft. BS present. Results & Data Results & Data Vital Signs (Past 12 Hours) Vital Signs Temp Pulse Resp BP Pulse Ox O2 Del Method 09/29/23 15:13 101 H 09/29/23 12:59 36.9 C 133 H 18 111/66 100 Room Air PG Care Time/CCT Total # of Minutes Spent Total Time Spent with Patient: Total time spent is greater than 50% in coordination of care (as documented) at patient's floor/unit and/or counseling patient: Coding Level of Care Code 49173 INT INP/OBS CARE 3/75MIN Diagnoses Upper GI bleed K92.2 CAD (coronary artery disease) I25.10 S/P coronary artery stent placement Z95.5 Hyperlipidemia E78.5 HTN (hypertension) I10 CKD (chronic kidney disease) N18.9
[2023-09-29] MEDS: LACTATED RINGER'S 1,000 ML IV SCH (16:28)
[2023-09-29 17:25] LABS: Hematocrit (blood only) 29.5 % (42.0-52.0); Hemoglobin 9.7 g/dl (14.0-18.0)
[2023-09-29 20:15] LABS: Hematocrit (blood only) 28.4 % (42.0-52.0); Hemoglobin 9.4 g/dl (14.0-18.0)
[2023-09-30] MEDS ORDERED: MELATONIN 3 MG TAB PO PRN (00:06)
[2023-09-30] MEDS: LACTATED RINGER'S 1,000 ML IV SCH ×3 (00:24→18:30)
[2023-09-30] MEDS ORDERED: diphenhydrAMINE 50 MG/ML VIAL IV STA (00:36)
[2023-09-30 00:42] LABS: Hematocrit (blood only) 26.6 % (42.0-52.0); Hemoglobin 8.8 g/dl (14.0-18.0)
[2023-09-30] MEDS: PANTOprazole 40 MG in DEXTROSE 5% MINI-B 100 ML IV SCH ×4 (01:20→18:39)
[2023-09-30 04:18] LABS: Basophils # (auto) 0.03 K/uL (0.00-0.20); Basophils % (auto) 0.3 %; Eosinophils # (auto) 0.08 K/uL (0.00-0.50); Eosinophils % (auto) 0.8 %; Hematocrit (blood only) 24.5 % (42.0-52.0); Hemoglobin 8.2 g/dl (14.0-18.0); Immature Granulocytes # (auto) 0.03 K/uL (0.01-0.20); Immature Granulocytes % (auto) 0.3 %; Lymphocytes # (auto) 2.74 K/uL (1.20-3.40); Mean Corpuscular Hemoglobin 28.2 pg (25.0-34.0); Mean Corpuscular Hgb Conc 33.5 g/dL (32.0-36.0); Mean Corpuscular Volume 84.2 fL (80.0-100.0); Mean Platelet Volume 11.2 fL (9.4-12.4); Monocytes # (auto) 0.73 K/uL (0.11-0.59); Monocytes % (auto) 7.7 %; Neutrophils # (auto) 5.83 K/uL (1.40-6.50); Neutrophils % (auto) 61.9 %; Platelet Count 207 K/uL (130-400); RDW Coefficient of Variation 14.4 % (11.5-14.5); RDW Standard Deviation 43.7 fL (36.4-46.3); Red Blood Count 2.91 M/uL (4.70-6.10); White Blood Count 9.44 K/ul (4.8-10.8)
[2023-09-30 04:39] LABS: BUN Creatinine Ratio 38.2 (10-20); Calcium 8.2 mg/dl (8.6-10.3); Creatinine Clr Calc Pharmacy 91.3 ml/min; Est GFR (African American) 71.5 ml/min; Est GFR (Non-African American) 61.7 ml/min; Potassium 3.6 mmol/L (3.5-5.1)
--- NOTE | 2023-09-30 09:26 | Hospitalist Progress Note ---
Date of Service September 30, 2023 Assessment & Plan (1) Upper GI bleed: Plan: Upper GI bleed Patient with a syncopal event, symptomatic anemia, on LR at 100 ml/hr BUN acutely elevated from normal up to 70 on admission consistent with upper GI bleed, however no bleeding seen on upper EGD, nor seen on angio of abd/pelvis hgb dropped in July from 14-12 and on admission from 10.5 to 8.2 Patient improved and normotensive Discussed with GI Case, plan to colonoscope 10/01/23. - PPI continued. May switch to IV BID after results of endoscopy -risk is uncertain, as so is cause, may be in need of transfusion CODE: Full Diet: NPO (2) CAD (coronary artery disease): Plan: CAD, LAD PCI PCI 05/2022. 1D US to proximal LAD due to abnormal stress test Patient is more than 1 year out and has hemodynamically significant bleeding with an episode of syncope, aspirin/Plavix temporarily held for GIB. Resume plaavix when stable. - No chest pain/chest pressure. Last stress echo normal. - EKG sinus tachy 2/2 GIB chronic stable htn, typically on lisinopril, metoprolol, hydrochlorothiazide on hold typically on rosuvastatin (3) CKD (chronic kidney disease): Plan: CKD 3, chronic and stable Following with [facility] nephrology, recent creatinine baseline around 1.41.5 - Denies LUTS/dysuria. No flank pain. - Trend daily Plan DVT PPx; SCDs Admission and Anticipated Discharge Date Admission Date: September 29, 2023 Subjective pt has no complaints, no abdominal pain EGD did not show any source for bleeding, CT angio of abd/pelvis likewise, no source for colonoscopy 10/01/23 Physical Exam Physical Exam: awake and alert, no c/o abdominal pain, no source discovered Results & Data Results & Data Vital Signs (Past 12 Hours) Vital Signs Temp Pulse Pulse Resp BP BP Pulse Ox 09/30/23 07:38 97.3 F L 87 18 145/69 H 97 09/30/23 03:04 98.4 F 91 H 20 112/64 94 09/30/23 02:10 83 09/30/23 02:03 98.2 F 98 H 16 149/81 H 100 09/30/23 01:52 09/29/23 23:14 93 H 09/29/23 23:09 O2 Del Method O2 Del Method 09/30/23 07:38 Room Air 09/30/23 03:04 Room Air 09/30/23 02:10 09/30/23 02:03 Room Air 09/30/23 01:52 Room Air 09/29/23 23:14 09/29/23 23:09 Room Air Laboratory Results reviewed cbc reviewed chemistry PG Care Time/CCT Total # of Minutes Spent Total Time Spent with Patient: Total time spent is greater than 50% in coordination of care (as documented) at patient's floor/unit and/or counseling patient: Coding Level of Care Code 12497 SUB INP/OBS CARE 3/50MIN Diagnoses Upper GI bleed K92.2 CAD (coronary artery disease) I25.10 CKD (chronic kidney disease) N18.9
[2023-09-30] MEDS: ACETAMINOPHEN 1,000 MG/100 ML VIAL IV PRN ×2 (09:48→21:42)
--- NOTE | 2023-09-30 09:54 | Anesthesiology Consultation ---
Date of Service September 30, 2023 Assessment & Plan Chart Review Chart Review: Acceptable Risk for Surgery Consults Requested none History Surgery Operation Date: 09/30/23 16:30 Proposed Procedures p Esophagogastroduodenoscopy Dr Mahajan - Austin Becker Case, DO Height/Weight Height: 6 ft 3 in Weight: 120 kg Allergies Allergy/AdvReac Type Severity Reaction Status Date / Time No Known Allergies Allergy Verified 09/29/23 15:07 Medications Home Medications Medication Instructions Recorded Confirmed Last Taken tadalafil 5 mg tablet 5 mg PO DAILY PRN ud 06/22/22 09/29/23 Unknown aspirin 81 mg tablet,delayed 81 mg PO QAM #30 tabs 06/23/22 09/29/23 09/28/23 release nitroglycerin 0.4 mg sublingual 0.4 mg sublingual Q5M PRN chest 06/23/22 09/29/23 Unknown tablet (Nitrostat) pain #25 tabs amitriptyline 25 mg tablet 25 mg PO HS 08/17/22 09/29/23 09/28/23 hydrochlorothiazide 25 mg tablet 25 mg PO QAM #90 tabs 01/13/23 09/29/23 09/28/23 rosuvastatin 40 mg tablet (Crestor) 40 mg PO HS #90 tabs 01/13/23 09/29/23 09/28/23 clopidogrel 75 mg tablet 75 mg PO QAM #90 tabs 03/19/23 09/29/23 09/28/23 lisinopril 20 mg tablet 20 mg PO QAM #90 tabs 03/19/23 09/29/23 09/28/23 ezetimibe 10 mg tablet (Zetia) 10 mg PO DAILY #90 tabs 08/02/23 09/29/23 09/28/23 metoprolol succinate 50 mg 50 mg PO QAM #90 tabs 08/02/23 09/29/23 09/28/23 tablet,extended release 24 hr hydroxyzine HCl 10 mg tablet 20 mg PO DAILY 08/27/23 09/29/23 09/28/23 Active Medications Generic Name Dose Route Start Last Admin Trade Name Freq PRN Reason Stop Dose Admin Pantoprazole Sodium 40 mg/ 100 mls @ 20 mls/hr 09/29/23 15:00 09/30/23 06:04 Dextrose IV 10/29/23 14:59 8 mg/hr Q5H HAILY 20 mls/hr Administration 8 MG/HR Lactated Ringer's 1,000 mls @ 125 mls/hr 09/29/23 16:15 09/30/23 08:06 Lr IV 10/29/23 16:14 125 mls/hr .Q8H HAILY Administration Past Medical History Medical History Proteinuria Acute kidney injury Renal cyst, left Microscopic hematuria Left lumbar radiculopathy CAD (coronary artery disease) [facility] Prediabetes Osteoarthritis Hyperlipidemia Hypertension Past Family History Family History Grandfather (Maternal) Family history of diabetes mellitus Past Surgical History Surgical History History of cardiac catheterization 06/22/22 [facility] - 1 stent S/P coronary artery stent placement x 1 History of varicocele REMOVAL OF Hx of elbow surgery RIGHT DEBRIDEMENT History of cystoscopy FOR HEMATURIA History of lumbar fusion L FOOT NERVE PAIN POST OP Social History Smoking Status: Never smoker Do You Dip or Chew Tobacco: No Hx Alcohol Use: Yes Alcohol type: beer alcohol intake frequency: holidays/special occasions only Hx Substance Use: No substance use type: does not use Physical Exam Vital Signs Last Vital Signs Temp 36.3 C L 09/30/23 07:38 Pulse 87 09/30/23 07:38 Resp 18 09/30/23 07:38 BP 145/69 H 09/30/23 07:38 Pulse Ox 97 09/30/23 07:38 O2 Del Method Room Air 09/30/23 07:38 Testing Laboratory Results 09/30/23 03:42 09/30/23 03:42 PT 10.7 Seconds (9.0-12.0) 09/29/23 13:20 INR 1.0 (0.9-1.1) 09/29/23 13:20 APTT 22 Seconds (21-31) 09/29/23 13:20 Blood Type AB Positive 09/29/23 15:04 Antibody Screen NEGATIVE 09/29/23 15:04
--- NOTE | 2023-09-30 10:09 | Gastrointestinal Consultation ---
Date of Consultation September 30, 2023 Assessment & Plan (1) Upper GI bleed: (2) Acute blood loss anemia: Plan Diff dx: PUD vs AVM vs malignancy vs other. -NPO for now. -Continue Protonix at 8 mg/hr. -Maintain hgb >8. -EGD with Dr. Mahajan today for further evaluation. -Further recommendations will be made pending results of testing. Thank you for allowing us to participate in the care of this patient. If you have any questions or concerns, please do not hesitate to contact us. Supervising Physician Co-Signing Physician Notes Agree with KATELYN Pena as above Abd: Soft, NT, ND, +BS Continue current therapy and supportive care Proceed with EGD now History of Present Illness Reason for Consultation: UGIB Requesting Physician: Dr. Garcia Attending Physician: Deonte Mcallister MD History of Present Illness Patient is a 53 y.o. 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 Upon admission, his H&H was noted to be 9.4/28.4 down from a hemoglobin of 12.7 one month ago. H&H did drop to 8.2/24.5 this morning. He endorses passing a loose, black stool this morning. States he has been having mild epigastric discomfort over the past few weeks. No nausea or vomiting, hematemesis, or angie rectal bleeding. Remains on Plavix and ASA for anticoagulation. No ibuprofen or alcohol use reported. Patient has been kept NPO and initiated on a PPI ggt. Allergies Allergy/AdvReac Type Severity Reaction Status Date / Time No Known Allergies Allergy Verified 09/29/23 15:07 Home Medications Medication Instructions Recorded Confirmed Type tadalafil 5 mg tablet 5 mg PO DAILY PRN ud 06/22/22 09/29/23 History aspirin 81 mg tablet,delayed 81 mg PO QAM #30 tabs 06/23/22 09/29/23 Rx release nitroglycerin 0.4 mg sublingual 0.4 mg sublingual Q5M PRN chest 06/23/22 09/29/23 Rx tablet (Nitrostat) pain #25 tabs amitriptyline 25 mg tablet 25 mg PO HS 08/17/22 09/29/23 History hydrochlorothiazide 25 mg tablet 25 mg PO QAM #90 tabs 01/13/23 09/29/23 Rx rosuvastatin 40 mg tablet (Crestor) 40 mg PO HS #90 tabs 01/13/23 09/29/23 Rx clopidogrel 75 mg tablet 75 mg PO QAM #90 tabs 03/19/23 09/29/23 Rx lisinopril 20 mg tablet 20 mg PO QAM #90 tabs 03/19/23 09/29/23 Rx ezetimibe 10 mg tablet (Zetia) 10 mg PO DAILY #90 tabs 08/02/23 09/29/23 Rx metoprolol succinate 50 mg 50 mg PO QAM #90 tabs 08/02/23 09/29/23 Rx tablet,extended release 24 hr hydroxyzine HCl 10 mg tablet 20 mg PO DAILY 08/27/23 09/29/23 History Patient History Medical History Proteinuria Acute kidney injury Renal cyst, left Microscopic hematuria Left lumbar radiculopathy CAD (coronary artery disease) [facility] Prediabetes Osteoarthritis Hyperlipidemia Hypertension Surgical History History of cardiac catheterization 06/22/22 [facility] - 1 stent S/P coronary artery stent placement x 1 History of varicocele REMOVAL OF Hx of elbow surgery RIGHT DEBRIDEMENT History of cystoscopy FOR HEMATURIA History of lumbar fusion L FOOT NERVE PAIN POST OP Family History Grandfather (Maternal) Family history of diabetes mellitus Social History Smoking Status: Never smoker Second Hand Exposure: No; Do You Dip or Chew Tobacco: No; Hx Alcohol Use: Yes Alcohol type: beer Hx Substance Use: No Preferred Language: Yakut Communication Ability: Effective Annealing Oven Operator Required: No Beliefs That Will Affect Care: None Current Living Situation: Spouse Feels Safe at Home: Yes Safety Concerns: Feels Safe At This Time Assistive Devices: None Review of Systems Constitutional: + fatigue; no fever and no chills Respiratory: no cough and no dyspnea Cardiovascular: no chest pain and no dyspnea Gastrointestinal: as per Subjective / HPI Physical Exam Constitutional: WD/WN, vitals as above Respiratory: normal respiratory effort, lungs clear to auscultation Cardiovascular: RRR, no murmur, no edema Gastrointestinal (Abdomen): normal bowel sounds, soft, nontender, no hepatosplenomegaly Psychiatric: A+Ox3, euthymic affect Results & Data Vital Signs (Past 12 Hours) Vital Signs Temp Pulse Pulse Resp BP BP Pulse Ox 09/30/23 07:38 36.3 C L 87 18 145/69 H 97 09/30/23 03:04 36.9 C 91 H 20 112/64 94 09/30/23 02:10 83 09/30/23 02:03 36.8 C 98 H 16 149/81 H 100 09/30/23 01:52 09/29/23 23:14 93 H 09/29/23 23:09 O2 Del Method O2 Del Method 09/30/23 07:38 Room Air 09/30/23 03:04 Room Air 09/30/23 02:10 09/30/23 02:03 Room Air 09/30/23 01:52 Room Air 09/29/23 23:14 09/29/23 23:09 Room Air Diagnostic Findings Laboratory Results WBC 9.44 K/ul (4.8-10.8) 09/30/23 03:42 RBC 2.91 M/uL (4.70-6.10) L 09/30/23 03:42 Hgb 8.2 g/dl (14.0-18.0) L 09/30/23 03:42 Hct 24.5 % (42.0-52.0) L 09/30/23 03:42 MCV 84.2 fL (80.0-100.0) 09/30/23 03:42 MCH 28.2 pg (25.0-34.0) 09/30/23 03:42 MCHC 33.5 g/dL (32.0-36.0) 09/30/23 03:42 RDW Std Deviation 43.7 fL (36.4-46.3) 09/30/23 03:42 RDW Coeff of Enrique 14.4 % (11.5-14.5) 09/30/23 03:42 Plt Count 207 K/uL (130-400) 09/30/23 03:42 MPV 11.2 fL (9.4-12.4) 09/30/23 03:42 Immature Gran % (Auto) 0.3 % 09/30/23 03:42 Neut % (Auto) 61.9 % 09/30/23 03:42 Lymph % (Auto) 29.0 % 09/30/23 03:42 [place] % (Auto) 7.7 % 09/30/23 03:42 Eos % (Auto) 0.8 % 09/30/23 03:42 Baso % (Auto) 0.3 % 09/30/23 03:42 Neut # (Auto) 5.83 K/uL (1.40-6.50) 09/30/23 03:42 Lymph # (Auto) 2.74 K/uL (1.20-3.40) 09/30/23 03:42 [place] # (Auto) 0.73 K/uL (0.11-0.59) H 09/30/23 03:42 Eos # (Auto) 0.08 K/uL (0.00-0.50) 09/30/23 03:42 Baso # (Auto) 0.03 K/uL (0.00-0.20) 09/30/23 03:42 Immature Gran # (Auto) 0.03 K/uL (0.01-0.20) 09/30/23 03:42 PT 10.7 Seconds (9.0-12.0) 09/29/23 13:20 INR 1.0 (0.9-1.1) 09/29/23 13:20 APTT 22 Seconds (21-31) 09/29/23 13:20 PTT Ratio 0.8 09/29/23 13:20 Sodium 139 mmol/L (136-145) 09/30/23 03:42 Potassium 3.6 mmol/L (3.5-5.1) 09/30/23 03:42 Chloride 108 mmol/L (98-107) H 09/30/23 03:42 Carbon Dioxide 24 mmol/L (21-32) 09/30/23 03:42 Anion Gap 7 (3-11) 09/30/23 03:42 BUN 50 mg/dl (6-23) H D 09/30/23 03:42 Creatinine 1.31 mg/dl (0.6-1.4) 09/30/23 03:42 Est Cr Clr Drug Dosing 91.3 ml/min 09/30/23 03:42 Est GFR ( Amer) 71.5 ml/min 09/30/23 03:42 Est GFR (Non-Af Amer) 61.7 ml/min 09/30/23 03:42 BUN/Creatinine Ratio 38.2 (10-20) H 09/30/23 03:42 Glucose 116 mg/dl (70-99(Fasting)) H 09/30/23 03:42 Calcium 8.2 mg/dl (8.6-10.3) L 09/30/23 03:42 Total Bilirubin 0.4 mg/dl (0.2-1.0) 09/29/23 13:20 AST 14 U/L (13-39) 09/29/23 13:20 ALT 19 U/L (7-52) 09/29/23 13:20 Alkaline Phosphatase 38 U/L (34-104) 09/29/23 13:20 Troponin I High Sens 4.1 pg/ml (0-20) 09/29/23 13:20 Total Protein 6.4 gm/dl (6.0-8.3) 09/29/23 13:20 Albumin 3.8 gm/dl (3.4-5.0) 09/29/23 13:20 Globulin 2.6 gm/dl (2.5-4.0) 09/29/23 13:20 Albumin/Globulin Ratio 1.5 (0.9-2) 09/29/23 13:20 Blood Type AB Positive 09/29/23 15:04 Antibody Screen NEGATIVE 09/29/23 15:04 Impressions Chest X-Ray 09/29/23 13:06 SINGLE VIEW CHEST CLINICAL HISTORY: Atypical chest pain. FINDINGS: A PA chest radiograph is compared to study dated 06/22/2022. The cardiomediastinal silhouette is unremarkable. The lungs and pleural spaces are clear. No pneumothorax is seen. The bony thorax is grossly intact. IMPRESSION: No active disease in the chest. ACT 112: Negative or not required by law. Electronically signed by: Morteza London M.D. 09/29/2023 2:23 PM Knee X-Ray 01/31/24 13:07 XR knee RT 3V CLINICAL HISTORY: Knee trauma, no prior imaging TECHNIQUE: 3 views of the right knee were obtained. Comparison: None available at the time of this dictation. FINDINGS: There is no evidence of an acute fracture. Degenerative changes are seen in the knee joint. No joint effusion is seen. Soft tissue swelling is seen about the knee. IMPRESSION: Degenerative changes without evidence of acute injury. ACT 112: Negative or not required by law. Electronically signed by: Apolinar Mccarty M.D. 09/29/2023 2:40 PM PG Care Time/CCT Total # of Minutes Spent Total Time Spent with Patient: Total time spent is greater than 50% in coordination of care (as documented) at patient's floor/unit and/or counseling patient: Coding Level of Care Code 83979 INT INP/OBS CARE 3/75MIN Diagnoses Upper GI bleed K92.2 Acute blood loss anemia D62
[2023-09-30] MEDS ORDERED: PROPOFOL IV EMULSION 10 MG/ML 20 ML VIAL IV ONE ×3 (10:58→13:02)
[2023-09-30] MEDS ORDERED: LIDOCAINE 2% 2 ML VIAL/AMP(20MG/ML) INFIL ONE ×2 (10:58→12:24)
--- NOTE | 2023-09-30 13:05 | GI REPORT ---
Patient Name: Joe Braxton Procedure Date: 09/30/2023 12:27 PM Date of : 1970 Admit Type: Inpatient Age: 53 Gender: Male Attending MD: Austin Mahajan DO, Procedure: Upper GI endoscopy Providers: Austin Mahajan DO Referring MD: Deonte Mcallister Indications: Melena Medicines: Monitored Anesthesia Care Complications: No immediate complications. Estimated Blood Loss: Estimated blood loss: none. Procedure: Pre-Anesthesia Assessment: - Prior to the procedure, a History and Physical was performed, and patient medications and allergies were reviewed. The patient's tolerance of previous anesthesia was also reviewed. The risks and benefits of the procedure and the sedation options and risks were discussed with the patient. All questions were answered, and informed consent was obtained. Prior Anticoagulants: The patient has taken Plavix (clopidogrel), last dose was 2 days prior to procedure. ASA Grade Assessment: III - A patient with severe systemic disease. After reviewing the risks and benefits, the patient was deemed in satisfactory condition to undergo the procedure. After obtaining informed consent, the endoscope was passed under direct vision. Throughout the procedure, the patient's blood pressure, pulse, and oxygen saturations were monitored continuously. The Scope was introduced through the mouth, and advanced to the second part of duodenum. The upper GI endoscopy was accomplished without difficulty. The patient tolerated the procedure well. Findings: The examined esophagus was normal. A small hiatal hernia was present. There was a medium-sized lipoma on the greater curvature of the stomach. The examined duodenum was normal. Impression: - Normal esophagus. - Small hiatal hernia. - Normal examined duodenum. - No specimens collected. Recommendation: - Return patient to [facility] care. - Clear liquid diet. - Perform a colonoscopy tomorrow. Austin Mahajan DO 09/30/2023 1:04:38 PM This report has been signed electronically. Note Initiated On: 09/30/2023 12:27 PM Number of Addenda: 0 I attest to the content of the Intraoperative Record and orders documented therein, exceptions below {[id number]}
--- NOTE | 2023-09-30 14:43 | Anesthesiology Progress Note ---
Date of Service September 30, 2023 Anesthesia Post Procedure Vital Signs Vital Signs: Temp Pulse Pulse Pulse Resp BP BP 09/30/23 14:02 36.6 C 82 18 09/30/23 13:29 81 16 129/75 09/30/23 13:14 92 H 16 123/80 09/30/23 12:59 112 H 18 107/63 09/30/23 12:08 36.5 C 100 H 16 09/30/23 11:58 36.8 C 80 18 09/30/23 07:38 36.3 C L 87 18 09/30/23 03:04 36.9 C 91 H 20 09/30/23 02:10 83 09/30/23 02:03 36.8 C 98 H 16 149/81 H 09/30/23 01:52 09/29/23 23:14 93 H 09/29/23 23:09 09/29/23 18:01 102 H 14 128/85 09/29/23 16:59 101 H 17 128/81 09/29/23 16:30 101 H 16 130/73 09/29/23 16:00 94 H 16 125/81 09/29/23 15:30 102 H 22 128/75 09/29/23 15:13 101 H 09/29/23 15:07 104 H 123/77 BP Pulse Ox O2 Del Method O2 Del Method 09/30/23 14:02 152/94 H 100 Room Air 09/30/23 13:29 97 Room Air 09/30/23 13:14 96 Room Air 09/30/23 12:59 92 Room Air 09/30/23 12:08 174/95 H 100 Room Air 09/30/23 11:58 119/70 98 Room Air 09/30/23 07:38 145/69 H 97 Room Air 09/30/23 03:04 112/64 94 Room Air 09/30/23 02:10 09/30/23 02:03 100 Room Air 09/30/23 01:52 Room Air 09/29/23 23:14 09/29/23 23:09 Room Air 09/29/23 18:01 96 09/29/23 16:59 98 Room Air 09/29/23 16:30 97 Room Air 09/29/23 16:00 98 Room Air 09/29/23 15:30 97 Room Air 09/29/23 15:13 09/29/23 15:07 97 Room Air Transfer of Care Handoff Completed per policy Notes Mental Status: alert / awake / arousable Patient Amnestic to Procedure: Yes Nausea / Vomiting: adequately controlled Pain: adequately controlled Airway Patency, RR, SpO2: stable & adequate BP & HR: stable & adequate Hydration State: stable & adequate Anesthetic Complications: no major complications apparent and Pt Satisfied with anesthetic care
[2023-09-30] MEDS ORDERED: OPTIRAY 320 125ml IV ONE (14:51)
--- NOTE | 2023-09-30 15:21 | CT Scan Report ---
CT angio abdomen pelvis w con CLINICAL HISTORY: blood loss anemia normal egd TECHNIQUE: Multidetector row helical CT of the abdomen and pelvis was performed, following intravenou s administration of iodinated contrast. No oral contrast was administered. Automated dose lowering te chniques and/or adjustment according to patient size were utilized for this exam. Coronal and sagitta l reformations were obtained. MIP and 3D volume rendered reconstructions were obtained. CT DOSE: 1665.51 mGy.cm Comparison: Comparison is made to CT abdomen pelvis 07/15/2023 FINDINGS: Lower chest: No acute abnormality Liver: Unremarkable. No focal lesions are seen. Gallbladder and biliary tree: No calcified gallstones. Normal caliber wall. No intra- or extrahepatic biliary ductal dilation. Pancreas: Unremarkable, no focal lesions. Spleen: Unremarkable. Adrenals: Unremarkable. Kidneys and ureters: Unremarkable. Bladder: Unremarkable. Reproductive organs: Unremarkable. Bowel: The appendix is normal. Lymph nodes Retroperitoneal: Unremarkable. Pelvic: Unremarkable. Mesenteric: Unremarkable. Peritoneum: Normal. Abdominal wall: Unremarkable. Bones: Degenerative changes in the visualized spine. CT angiogram: The abdominal aortic contours appear intact without evidence of aneurysmal dilatation a nd/or dissection. There is evidence of scattered atherosclerotic calcifications of the abdominal aor ta and its major branches. The origins of the celiac axis, superior mesenteric, inferior mesenteric and bilateral renal arteries are patent. IMPRESSION: No acute abnormality and in particular no evidence of acute GI bleed in this patient with anemia. ACT 112: Negative or not required by law. Electronically signed by: Apolinar Mccarty M.D. 09/30/2023 3:19 PM
[2023-09-30] MEDS ORDERED: LAVAGE SOLUTION 4000ML PO SCH (18:00)
[2023-09-30] MEDS: PANTOprazole 40 MG in SYRINGE 0 ML IV SCH (20:13)
[2023-10-01] MEDS: LACTATED RINGER'S 1,000 ML IV SCH ×2 (03:54→17:17)
[2023-10-01 05:51] LABS: Basophils # (auto) 0.03 K/uL (0.00-0.20); Basophils % (auto) 0.4 %; Eosinophils # (auto) 0.13 K/uL (0.00-0.50); Eosinophils % (auto) 1.7 %; Hematocrit (blood only) 23.2 % (42.0-52.0); Hemoglobin 7.5 g/dl (14.0-18.0); Immature Granulocytes # (auto) 0.03 K/uL (0.01-0.20); Immature Granulocytes % (auto) 0.4 %; Lymphocytes # (auto) 2.09 K/uL (1.20-3.40); Mean Corpuscular Hgb Conc 32.3 g/dL (32.0-36.0); Mean Corpuscular Volume 86.6 fL (80.0-100.0); Mean Platelet Volume 10.9 fL (9.4-12.4); Neutrophils # (auto) 4.59 K/uL (1.40-6.50); Neutrophils % (auto) 61.5 %; Nucleated RBC # (auto) 0.02 K/uL (0.00-0.12); Nucleated RBC % (auto) 0.3 %; Platelet Count 197 K/uL (130-400); RDW Coefficient of Variation 14.4 % (11.5-14.5); RDW Standard Deviation 44.1 fL (36.4-46.3); Red Blood Count 2.68 M/uL (4.70-6.10); Reticulocyte % 3.28 % (0.50-2.00); White Blood Count 7.47 K/ul (4.8-10.8)
[2023-10-01 06:19] LABS: Ovalocytes 1+
[2023-10-01] MEDS ORDERED: SODIUM CHLORIDE 0.9% 250 ML IV PRN (06:24)
[2023-10-01 06:26] LABS: BUN Creatinine Ratio 18.8 (10-20); Calcium 8.2 mg/dl (8.6-10.3); Creatinine Clr Calc Pharmacy 102.7 ml/min; Est GFR (Non-African American) 70.8 ml/min; Ferritin 81.3 ng/ml (8-388); Potassium 3.4 mmol/L (3.5-5.1)
[2023-10-01] MEDS: POTASSIUM CHLORIDE / WTR 10 MEQ/100 ML PLCT IV SCH ×3 (07:55→13:10)
[2023-10-01] MEDS ORDERED: POTASSIUM CHLORIDE CRTAB 20 MEQ TABCR PO STA (08:49)
[2023-10-01] MEDS ORDERED: MAGNESIUM SULFATE / D5W 1 GM/100 ML BAG IV ONE (09:00)
--- NOTE | 2023-10-01 09:16 | History & Physical Bridge Note ---
Date of Service October 01, 2023 History & Physical Bridge Note I have examined the patient, reviewed the History & Physical and in the interval since the performance of the History & Physical I have noted the following changes of clinical significance: Patient's H&H did drop overnight from 8.2/24.5 to 7.5/23.2. He denies any black stools. Is passing "green liquid" after completion of the bowel preparation. Denies n/v, abdominal pain. States he is to receive 1 unit PRBCs. PE: A&Ox3. RRR. Lungs CTA bilaterally. Abdomen soft, nontender. Hyperactive bowel sounds. A/P: Patient is a 53 y.o. male admitted with acute blood loss anemia and melena with negative EGD and CTA Angio yesterday. -NPO for now. -Proceed with colonoscopy today with Dr. Mahajan. -Continue PPI ggt at 8mg/hr. -Further recommendations pending results of testing. Supervising Physician Co-Signing Physician Notes Agree with KATELYN Pena as above Abd: Soft, NT, ND, +BS Continue current therapy and supportive care. Proceed with Colonoscopy now
[2023-10-01] MEDS: ACETAMINOPHEN 1,000 MG/100 ML VIAL IV PRN (09:21)
[2023-10-01] MEDS: PANTOprazole 40 MG in SYRINGE 0 ML IV SCH ×2 (09:23→20:14)
--- NOTE | 2023-10-01 11:00 | Anesthesiology Consultation ---
Date of Service October 01, 2023 Assessment & Plan Chart Review Chart Review: Acceptable Risk for Surgery and Patient NOT seen in Pre Admission Testing Consults Requested none ASA ASA3 Proposed Anesthesia Anesthesia Type: MAC Risk / Benefits Reviewed With: PT / POA / Parent / Guardian, Accepts Plan and Informed Consent Obtained History Surgery Operation Date: 09/30/23 16:30 Proposed Procedures p Esophagogastroduodenoscopy Dr Keyshawn Becker Case, DO Operation Date: 10/01/23 16:30 Proposed Procedures p Colonoscopy Dr. Keyshawn Becker Case, DO Height/Weight Height: 6 ft 3 in Weight: 121.8 kg Allergies Allergy/AdvReac Type Severity Reaction Status Date / Time No Known Allergies Allergy Verified 09/29/23 15:07 Medications Home Medications Medication Instructions Recorded Confirmed Last Taken tadalafil 5 mg tablet 5 mg PO DAILY PRN ud 06/22/22 09/29/23 Unknown aspirin 81 mg tablet,delayed 81 mg PO QAM #30 tabs 06/23/22 09/29/23 09/28/23 release nitroglycerin 0.4 mg sublingual 0.4 mg sublingual Q5M PRN chest 06/23/22 09/29/23 Unknown tablet (Nitrostat) pain #25 tabs amitriptyline 25 mg tablet 25 mg PO HS 08/17/22 09/29/23 09/28/23 hydrochlorothiazide 25 mg tablet 25 mg PO QAM #90 tabs 01/13/23 09/29/23 09/28/23 rosuvastatin 40 mg tablet (Crestor) 40 mg PO HS #90 tabs 01/13/23 09/29/23 09/28/23 clopidogrel 75 mg tablet 75 mg PO QAM #90 tabs 03/19/23 09/29/23 09/28/23 lisinopril 20 mg tablet 20 mg PO QAM #90 tabs 03/19/23 09/29/23 09/28/23 ezetimibe 10 mg tablet (Zetia) 10 mg PO DAILY #90 tabs 08/02/23 09/29/23 09/28/23 metoprolol succinate 50 mg 50 mg PO QAM #90 tabs 08/02/23 09/29/23 09/28/23 tablet,extended release 24 hr hydroxyzine HCl 10 mg tablet 20 mg PO DAILY 08/27/23 09/29/23 09/28/23 Active Medications Generic Name Dose Route Start Last Admin Trade Name Freq PRN Reason Stop Dose Admin Lactated Ringer's 1,000 mls @ 100 mls/hr 09/29/23 16:15 10/01/23 10:46 Lr IV 10/29/23 16:14 0 mls/hr .Q10H HAILY Infusion Acetaminophen 1,000 mg in 100 mls @ 400 mls/hr 09/29/23 19:28 10/01/23 10:20 Ofirmev IV 10/02/23 19:27 Infused Q8H PRN Infusion pain/fever Pantoprazole Sodium 40 mg/ 10 mls @ 5 mls/min 09/30/23 21:00 10/01/23 09:23 Syringe IV 10/30/23 20:59 5 mls/min BID HAILY Administration NPO Date Last Intake of Fluids: 09/29/23 Time Last Intake of Fluids: 10:00 Date Last Intake of Solids: 09/28/23 Time Last Intake of Solids: 10:00 Past Medical History Medical History Proteinuria Acute kidney injury Renal cyst, left Microscopic hematuria Left lumbar radiculopathy CAD (coronary artery disease) [facility] Prediabetes Osteoarthritis Hyperlipidemia Hypertension Exercise / Class Metabolic Activity II 4-5 Yardwork/Stairs/Walk up hill Past Family History Family History Grandfather (Maternal) Family history of diabetes mellitus Past Surgical History Surgical History History of cardiac catheterization 06/22/22 [facility] - 1 stent S/P coronary artery stent placement x 1 History of varicocele REMOVAL OF Hx of elbow surgery RIGHT DEBRIDEMENT History of cystoscopy FOR HEMATURIA History of lumbar fusion L FOOT NERVE PAIN POST OP Past Anesthesia History No Hx of Anesthesia Complications and No Family Hx of Anesthesia Complications History of PONV No Hx of PONV and No Hx of Motion Sickness Social History Smoking Status: Never smoker Do You Dip or Chew Tobacco: No Hx Alcohol Use: Yes Alcohol type: beer alcohol intake frequency: holidays/special occasions only Hx Substance Use: No substance use type: does not use Review of Systems ROS Unobtainable: All systems reviewed & are unremarkable except as noted in HPI & below Physical Exam Vital Signs Last Vital Signs Temp 36.6 C 10/01/23 07:53 Pulse 84 10/01/23 07:53 Resp 18 10/01/23 07:53 BP 137/83 10/01/23 07:53 Pulse Ox 98 10/01/23 07:53 O2 Del Method Room Air 10/01/23 07:53 Constitutional no acute distress ENMT Mouth: no TMJ abnormality Thyromental Distance: > or= 3.5 Finger Breadths Mallampati Class: II Neck normal visual inspection and trachea midline; neck extension not limited Respiratory normal respiratory effort Auscultation: lungs clear to auscultation bilaterally Cardiovascular Rate/Rhythm: regular rate and regular rhythm Heart Sounds: no murmur Musculoskeletal Spine: normal cervical ROM Extremities: full ROM of extremities Neurologic moves all extremities Psychiatric Orientation: alert and oriented x 3 Testing Laboratory Results 10/01/23 05:25 10/01/23 05:25 PT 10.7 Seconds (9.0-12.0) 09/29/23 13:20 INR 1.0 (0.9-1.1) 09/29/23 13:20 APTT 22 Seconds (21-31) 09/29/23 13:20 Blood Type AB Positive 09/29/23 15:04 Antibody Screen NEGATIVE 09/29/23 15:04 Electrocardiogram Date: 09/29/23 Sinus tachycardia Otherwise normal ECG When compared with ECG of 23-JUN-2022 06:25, Vent. rate has increased BY 53 BPM Nonspecific T wave abnormality now evident in Inferior leads Confirmed by Thomas Salcedo ([id number]) on 09/29/2023 3:20:45 PM Stress Test Date: 09/08/23 Findings: + WNL
[2023-10-01] MEDS ORDERED: LIDOCAINE 2% 2 ML VIAL/AMP(20MG/ML) INFIL ONE (12:02)
[2023-10-01] MEDS ORDERED: PROPOFOL IV EMULSION 10 MG/ML 20 ML VIAL IV ONE ×4 (12:02→12:14)
[2023-10-01] MEDS ORDERED: MIDAZOLAM HCL 1 MG/ML 2ML VIAL ONE (12:07)
[2023-10-01] MEDS ORDERED: fentaNYL citrate PF 100 MCG/2 ML VIAL ONE (12:07)
--- NOTE | 2023-10-01 12:25 | GI REPORT ---
Patient Name: Joe Braxton Procedure Date: 10/01/2023 12:01 PM Date of : 1970 Admit Type: Inpatient Age: 53 Gender: Male Attending MD: Austin Mahajan DO, Procedure: Colonoscopy Providers: Austin Mahajan DO Referring MD: Deonte Mcallister Indications: Melena Medicines: Monitored Anesthesia Care Complications: No immediate complications. Estimated Blood Loss: Estimated blood loss: none. Procedure: Pre-Anesthesia Assessment: - Prior to the procedure, a History and Physical was performed, and patient medications and allergies were reviewed. The patient's tolerance of previous anesthesia was also reviewed. The risks and benefits of the procedure and the sedation options and risks were discussed with the patient. All questions were answered, and informed consent was obtained. Prior Anticoagulants: The patient has taken Plavix (clopidogrel), last dose was 3 days prior to procedure. ASA Grade Assessment: III - A patient with severe systemic disease. After reviewing the risks and benefits, the patient was deemed in satisfactory condition to undergo the procedure. After I obtained informed consent, the scope was passed under direct vision. Throughout the procedure, the patient's blood pressure, pulse, and oxygen saturations were monitored continuously. The scope was introduced through the anus and advanced to the terminal ileum. The colonoscopy was performed without difficulty. The patient tolerated the procedure well. The quality of the bowel preparation was good. The terminal ileum, ileocecal valve, appendiceal orifice, and rectum were photographed. Findings: The perianal and digital rectal examinations were normal. Non-bleeding internal hemorrhoids were found during retroflexion. The hemorrhoids were small. Impression: - Non-bleeding internal hemorrhoids. - No specimens collected. Recommendation: - Return patient to [facility] for [facility] care. - Advance diet as tolerated. - Continue present medications. Austin Mahajan DO 10/01/2023 12:25:31 PM This report has been signed electronically. Note Initiated On: 10/01/2023 12:01 PM Number of Addenda: 0 I attest to the content of the Intraoperative Record and orders documented therein, exceptions below {[id number]}
--- NOTE | 2023-10-01 16:57 | Hospitalist Progress Note ---
Date of Service October 01, 2023 Assessment & Plan (1) Upper GI bleed: Plan: Upper GI bleed acute blood loss anemia Patient with a syncopal event, symptomatic anemia, BUN acutely elevated from normal up to 70 on admission consistent with upper GI bleed, however no bleeding seen on upper EGD, nor seen on angio of abd/pelvis not seen on colonoscopy hgb dropped in July from 14-12 and on admission from 10.5 to 7.5, 7.5 on recheck the plan at this time is to follow hgb, if stays stable will dc on ppi and have outpt capsule enteroscopy, if hgb falls will transfuse and consider transfer to [place] Patient improved and normotensive Discussed with GI Dr. Mahajan, for results of colonoscope 10/01/23. - PPI continued. May switch to BID -risk is uncertain, as so is cause, may be in need of transfusion if hgb drops CODE: Full Diet: NPO (2) CAD (coronary artery disease): Plan: CAD, LAD PCI PCI 05/2022. 1D US to proximal LAD due to abnormal stress test Patient is more than 1 year out and has hemodynamically significant bleeding with an episode of syncope, aspirin/Plavix temporarily held for GIB. discussion with Dr Sanchez and will eventually return to aspirin only - No chest pain/chest pressure. Last stress echo normal. - EKG sinus tachy 2/2 GIB chronic stable htn, typically on lisinopril, metoprolol; hydrochlorothiazide on hold typically on rosuvastatin (3) CKD (chronic kidney disease): Plan: CKD 3, chronic and remains stable Following with [facility], recent creatinine baseline around 1.41.5 - Denies LUTS/dysuria. No flank pain. Plan DVT PPx; SCDs Admission and Anticipated Discharge Date Admission Date: September 29, 2023 Subjective pt has no complaints, no abdominal pain, no melena EGD did not show any source for bleeding, CT angio of abd/pelvis likewise, no source colonoscopy 10/01/23, showed no active or old bleeding hemorrhoids without bleeding Physical Exam Physical Exam: awake and alert, no c/o abdominal pain, no source discovered Results & Data Results & Data Vital Signs (Past 12 Hours) Vital Signs Temp Pulse Resp BP BP Pulse Ox O2 Del Method 10/01/23 15:44 98.4 F 90 18 133/66 97 Room Air 10/01/23 13:09 98.1 F 78 18 135/84 99 Room Air 10/01/23 12:57 78 18 128/76 96 Room Air 10/01/23 12:42 83 18 123/71 96 Room Air 10/01/23 12:27 94 H 18 104/57 L 94 Room Air 10/01/23 10:59 98.4 F 97 H 16 143/83 H 143/83 H 100 Room Air 10/01/23 07:53 97.9 F 84 18 137/83 98 Room Air Laboratory Results reviewed cbc reviewed chemistry PG Care Time/CCT Total # of Minutes Spent Total Time Spent with Patient: Total time spent is greater than 50% in coordination of care (as documented) at patient's floor/unit and/or counseling patient: Coding Level of Care Code 85331 SUB INP/OBS CARE 3/50MIN Diagnoses Upper GI bleed K92.2 CAD (coronary artery disease) I25.10 CKD (chronic kidney disease) N18.9
[2023-10-02 06:33] LABS: Basophils # (auto) 0.02 K/uL (0.00-0.20); Basophils % (auto) 0.3 %; Eosinophils % (auto) 2.9 %; Hematocrit (blood only) 22.6 % (42.0-52.0); Hemoglobin 7.3 g/dl (14.0-18.0); Immature Granulocytes # (auto) 0.04 K/uL (0.01-0.20); Immature Granulocytes % (auto) 0.6 %; Lymphocytes # (auto) 1.88 K/uL (1.20-3.40); Lymphocytes % (auto) 27.1 %; Mean Corpuscular Hemoglobin 28.5 pg (25.0-34.0); Mean Corpuscular Hgb Conc 32.3 g/dL (32.0-36.0); Mean Corpuscular Volume 88.3 fL (80.0-100.0); Mean Platelet Volume 10.6 fL (9.4-12.4); Monocytes # (auto) 0.49 K/uL (0.11-0.59); Monocytes % (auto) 7.1 %; Platelet Count 191 K/uL (130-400); RDW Coefficient of Variation 14.6 % (11.5-14.5); RDW Standard Deviation 45.6 fL (36.4-46.3); Red Blood Count 2.56 M/uL (4.70-6.10); White Blood Count 6.93 K/ul (4.8-10.8)
[2023-10-02 06:59] LABS: BUN Creatinine Ratio 12.7 (10-20); Calcium 8.1 mg/dl (8.6-10.3); Creatinine Clr Calc Pharmacy 102.7 ml/min; Est GFR (African American) 81.2 ml/min; Potassium 3.8 mmol/L (3.5-5.1)
[2023-10-02 07:37] LABS: Polychromasia 1+
[2023-10-02] MEDS: PANTOprazole 40 MG in SYRINGE 0 ML IV SCH (08:23)
--- NOTE | 2023-10-02 17:21 | Discharge Summary ---
Date of Service October 02, 2023 Admission HPI Per Admitting Provider Joe is a 53-year-old male with a past medical history of CAD s/p LAD PCI 05/2022, hyperlipidemia, hypertension with last stress echo 09/08/2023 negative for ischemic findings on echo/EKG and with EF 55-60% and normal wall motion who presents to the ER for an episode of syncope with suspected upper GI bleed Fatigue, low BP, 1x syncopal event 1 day prior to presentation, +melena, poor appetite. DAPT for 1 stent >1 year out Beulah reports he and his Smiley had a flu like illness one week ago. Cough was a little persistent but was otherwise getting better up until last night when he stood an dgot a little lightheaded. Was walking and went grocery shopping and did OK, but then in the evening stood up and went to go to the bathroom when he got very lightheaded, felt his knees buckling, and then he pass ed out. Was a little confused waking up but got his bearings in a few minutes. Chandler very weak all over and crawled to bed. No numbness or tingling. Landed on his R knee which aches. No chest pain or chest presure Has been more winded/short of breath with exertion and a little now even when in bed Is on BP meds so checked his BP at home after falling an dwas 88/58. Drank gatorade and improved, but then dropepd again. +Black bowel movements for 2 days. No history of GIB. Had a colonoscopy @ age 50 and was normal per pt. 10 year followup. Was performed in [facility] by Yumiko. For his cold he was taking Nyquil severe cold/flu honey. He is not allowed to take NSAIDs due to 'heart stuff'. Is on daily aspirin/plaavix. He did not take his doses this morning. +hx of GERD/reflux. Had a barium test for dysphagia at one point an was on prilosec in the past but no longer takes. Last BM this morning, jet black/ Medical History: Reviewed Medications: Reviewed Surgical History: Reviewed Family history: Reviewed Allergies: Reviewed Social History: No tobacco, 1 day of ETOH use per week Code Status: Full Principal Diagnosis Acute blood loss anemia without defined source Discharge Exam Awake alert appropriate. Observed patient ambulate in unit without symptoms Discharge Data Allergies Allergy/AdvReac Type Severity Reaction Status Date / Time No Known Allergies Allergy Verified 09/29/23 15:07 Consultations 09/29/23 14:42 ED Decision to Admit Stat 09/29/23 16:07 Consult Gastroenterology Routine 10/02/23 11:50 Consult MIS comfort advisor Routine Procedures Performed Operation Date: 10/01/23 16:30 Actual Procedures p Colonoscopy - Austin Mahajan, DO Ordered Studies 09/30/23 13:33 CT angio abdomen pelvis w con Routine Hospital Course (1) Upper GI bleed: Upper GI bleed acute blood loss anemia Patient with a syncopal event, symptomatic anemia, BUN acutely elevated from normal up to 70 on admission consistent with upper GI bleed, however no bleeding seen on upper EGD, nor seen on angio of abd/pelvis not seen on colonoscopy hgb dropped in July from 14-12 and on admission from 10.5 to 7.5, 7.3 on recheck Patient improved and normotensive, patient's blood pressure medication will not be restarted fully at time of discharge due to her remaining lower blood pressure will have primary care evaluate for institution of medications in the short-term future Discussed with GI Dr. Mahajan, for results of colonoscope 10/01/23. Did not show sources of bleeding either. -Patient's hemoglobin remained stable he was without symptoms on ambulation will have patient return to outpatient emergency specialist Dr. Hernandez for consideration of capsule enteroscopy. Will go home on twice daily PPI and be on vitamin or similar CODE: Full (2) CAD (coronary artery disease): CAD, LAD PCI PCI 05/2022. 1D US to proximal LAD due to abnormal stress test Patient is more than 1 year out and has hemodynamically significant bleeding with an episode of syncope, aspirin/Plavix temporarily held for GIB. discussion with Dr Sanchez and will eventually return to aspirin only - No chest pain/chest pressure. Last stress echo normal. - EKG sinus tachy 2/2 GIB chronic stable htn, typically on lisinopril, metoprolol; hydrochlorothiazide on hold typically on rosuvastatin (3) CKD (chronic kidney disease): CKD 3, chronic and remains stable Following with [facility], recent creatinine baseline around 1.41.5 - Denies LUTS/dysuria. No flank pain. Plan DVT PPx; SCDs Total Time Total Time Spent Total Time Spent (In Minutes): It required greater than 30 minutes to prepare this patient for discharge. Discharge Plan Discharge Items Patient Disposition: Home - Self-Care Reason For Visit: UGIB, SYNCOPE Discharge Diagnosis: Anemia - suspect blood loss anemia Activity: Resume your previous activity Non-emergency contact: Primary Care Provider and Spike Machine Operator Call non-emergency contact if: your symptoms worsen Follow-up/Referrals: Mac Hernandez MD [Outside Practitioners] - Juice Zepeda MD [Primary Care Provider] - Diet: Regular Ambulatory Orders: Complete Blood Count no Diff (Routine) Timeframe: 2 Days Location: Determined by Patient Ordered By: Deonte Cunningham Attending Provider Instructions: You were admitted to the hospital because of anemia, most likely due to blood loss. You had an upper endoscopy and colonoscopy which did not reveal a source of the bleeding. You will follow up with Dr. Hernandez outpatient to have a capsule enteroscopy, which will look further into a possible source of the bleeding. Continue the Protonix as a protective measure to reduce the acid in your stomach in case an ulcer was missed. You can discontinue your Plavix, per Dr. Sanchez. You will continue taking your Aspirin 81 mg once daily. If you notice symptoms of melena (black stool), red blood in your stool, extreme fatigue, shortness of breath, lightheadedness, or chest pain, please return to the hospital immediately. You will get blood work on Wednesday10/04/2023. Pending Studies at Discharge: No Stand-Alone Forms: My [facility], Smoking Cessation Medications and DC Order Prescriptions: New pantoprazole [Protonix] 40 mg tablet,delayed release (DR/EC) 40 mg PO BID 30 Days Qty: 60 0RF Continued metoprolol succinate 50 mg tablet extended release 24 hr 50 mg PO QAM Qty: 90 3RF ezetimibe [Zetia] 10 mg tablet 10 mg PO DAILY Qty: 90 3RF hydroxyzine HCl 10 mg tablet 20 mg PO DAILY rosuvastatin [Crestor] 40 mg tablet 40 mg PO HS Qty: 90 3RF tadalafil 5 mg Tablet 5 mg PO DAILY PRN (Reason: ud) nitroglycerin [Nitrostat] 0.4 mg tablet, sublingual 0.4 mg sublingual Q5M PRN (Reason: chest pain) Qty: 25 2RF Rx Instructions: Take 1 tab sublingual every 5 min as needed for chest pain. Max 3 doses per episode. Call 911 if chest pain persists after 1st dose. aspirin 81 mg Tablet,Delayed Release (Dr/Ec) 81 mg PO QAM Qty: 30 0RF amitriptyline 25 mg Tablet 25 mg PO HS Held lisinopril 20 mg tablet 20 mg PO QAM Qty: 90 3RF Hold Instructions: Resume on 10/15/23. hydrochlorothiazide 25 mg tablet 25 mg PO QAM Qty: 90 3RF Hold Instructions: Resume on 10/15/23. Discontinued clopidogrel 75 mg tablet 75 mg PO QAM Qty: 90 3RF Discharge Orders: Discharge Order (Routine); Ordered 10/02/23 Ordered By: Deonte Barrera/Other Patient Handouts: Pantoprazole Delayed Release Oral Tablet Admission Data Admit Date/Time: 09/29/23 16:15 Attending Provider: Deonte Mcallister Admit Provider: Andrae Garcia Primary Care Provider: Juice Zepeda Other Providers: Andrae Garcia; Austin Mahajan Other Interventions: Discharge Summary Assessment (RN) Last Done: 10/01/23 12:42 Coding Level of Care Code 45100 INP/OBS DISCH >30 MIN Diagnoses Upper GI bleed K92.2 CAD (coronary artery disease) I25.10 CKD (chronic kidney disease) N18.9
== END 2023-10-02 12:56 | disposition home or self-care (01) | DRG 378 ==
LOC: ED 12:55 → SUATTDRO 16:15 → EDINP 16:15 → 2E 09-30 01:52